=== PATIENT | male | born 1950 | race Caucasian/White ===

== ENCOUNTER 2019-01-18 11:28 | Inpatient (IN) | payer MEDICAID ==
[~2019-01-18] VITALS: Ht 170.2 cm; Wt 77.3 kg
[2019-01-18] MEDS ORDERED: LORAZEPAM 2 MG INJ IV STA (11:38)
[2019-01-18] MEDS ORDERED: SOD CHLORIDE 0.9% 1,000 ML IV STA (11:38)
[2019-01-18 12:03] VITALS: Ht 170.2 cm; Wt 77.3 kg
[2019-01-18] MEDS ORDERED: FURO20TA3 PO (12:28)
[2019-01-18] MEDS ORDERED: LACT10SO5 PO (12:28)
[2019-01-18] MEDS ORDERED: TRAM50TA PO (12:29)
[2019-01-18] MEDS ORDERED: THIA100T56 PO (12:29)
[2019-01-18] MEDS ORDERED: SODIUM CHLORIDE 0.9% 1L BAG IV* STA (12:30)
[2019-01-18] MEDS ORDERED: CEFEPIME 2GM/50 ML (PMX) 50 ML IVPB STA (12:30)
[2019-01-18] MEDS ORDERED: PROP20TA4 PO (12:30)
[2019-01-18] MEDS ORDERED: MULTI PO (12:30)
[2019-01-18] MEDS ORDERED: PANT40TA4 PO (12:30)
[2019-01-18] MEDS ORDERED: VANCOMYCIN 1 GM (PMX) 250 ML IVPB ONE (12:30)
[2019-01-18] MEDS ORDERED: FOLI-49 PO (12:31)
[2019-01-18] MEDS ORDERED: OMEP20CA16 PO (12:31)
--- NOTE | 2019-01-18 13:34 | ERD ---
ER Documentation Chief Complaint Chief Complaint ALOC X3DAY WAKE NON VERBAL RESPONSE NOTED, ABLE TO MAINTAIN AIRWAY HPI This is a 68-year-old male that presents to the emergency department changes in his mental status. According to family which are his 3 siblings they stated that the patient has a history of cirrhosis secondary to alcohol abuse. Roughly 2 weeks ago he was seen at [facility]. A large mass was found in the left lower liver. According to imaging they were informed that this appears to be a neoplastic process. They were scheduling for imaging. The biopsy appointment is yet to be obtained. However family indicates that the patient stated he wanted to be DO NOT RESUSCITATE with comfort measures only and DO NOT INTUBATE. They were currently awaiting for hospice. The patient has become more confused over the past 3 days. He refuses to eat. He mumbles incomprehensible sounds and is experiencing visual hallucinations. According to his son who is been taking care of him there is been no blunt or penetrating head chest or abdominal trauma. He had no fevers. He said decreased urinary output. He has not complained of any chest pain or shortness of breath. ROS All systems reviewed and are negative except as per history of present illness. Medications Home Meds Reported Medications Omeprazole* (Omeprazole*) 20 Mg Capsule.dr, 40 MG PO DAILY, #30 CAP 01/18/19 Folic Acid* (Folic Acid*) 1 Mg Tablet, 1 MG PO DAILY, TAB 01/18/19 Pantoprazole* (Pantoprazole*) 40 Mg Tablet.dr, 40 MG PO AC BREAKFAST, TAB 01/18/19 Multivitamins* (Theragran*) 1 Tab Tab, 1 TAB PO DAILY, TAB 01/18/19 Propranolol Hcl* (Propranolol Hcl*) 20 Mg Tablet, 20 MG PO BID, TAB 01/18/19 Tramadol Hcl* (Ultram*) 50 Mg Tablet, 50 MG PO Q12H PRN for PAIN, TAB 01/18/19 Thiamine* (Vitamin B-1*) 100 Mg Tablet, 100 MG PO DAILY, TAB 01/18/19 Furosemide* (Furosemide*) 20 Mg Tablet, 20 MG PO DAILY, #60 TAB 01/18/19 Lactulose* (Lactulose*) 10 Gm/15 Ml Solution, 15 ML PO BID, ML 01/18/19 Allergies Allergies: Coded Allergies: No Known Allergy (Unverified , 01/18/19) PMhx/Soc History of Surgery: No (UNK) Anesthesia Reaction: No Hx Neurological Disorder: No Hx Respiratory Disorders: No Hx Cardiac Disorders: Yes (CHF, HTN) Hx Psychiatric Problems: No Hx Miscellaneous Medical Probl: Yes (LIVER CIRRHOSIS, CA UNK ETIOLOGY, GERD) Hx Alcohol Use: No (UNK) Hx Substance Use: No (UNK) Hx Tobacco Use: No (UNK) Smoking Status: Unknown if ever smoked Physical Exam Vitals Vital Signs Date Temp Pulse Resp B/P (MAP) Pulse Ox O2 O2 Flow FiO2 Time Delivery Rate 01/18/19 Nasal 2 12:03 Cannula 01/18/19 98.0 73 26 157/75 98 12:03 (102) Physical Exam Constitutional:Well-developed. Disheveled. Agitated. HEENT:Normocephalic. Atraumatic.Pupils were equal round reactive to light. Very dry mucous membranes.No tonsillar exudates. Neck: No nuchal rigidity. No lymphadenopathy. No posterior cervical spine tenderness or step-offs. Respiratory: Not using accessory muscles of respiration.Lungs were clear to auscultation bilaterally. No rhonchi. No rales. No wheezing. Cardiovascular: Regular rate regular rhythm.No murmurs. No rubs were appreciated.S1, S2 normal. Distal pulses are palpable 2+ bilaterally. GI: Abdomen was soft. Nontender. Hepatomegaly. Non Distended. No pulsatile abdominal masses or bruits. No rebound. No guarding. Bowel sounds were present and normal. Muscle skeletal: Full range of motion of both the upper and lower extremities bilaterally.Normal muscle tone.No assymetrical calf tenderness or swelling. Skin: No petechia, no purpura. No lesions on the palms or the soles of the feet. No maculopapular rash. NEURO: Patient was alert with spontaneous eye movement. Patient did not follow verbal command. Patient was mumbling incomprehensible sounds . gait not observed as patient was too weak to ambulate. Patient withdrew to pain. Result Diagram: 01/18/19 1139 01/18/19 1139 Results 24 hrs Laboratory Tests Test 01/18/19 11:37 01/18/19 11:39 01/18/19 11:50 Blood Gas Specimen Source Blood arterial Arterial Blood Date Drawn 01/18/2019 11:42:12 AM Arterial Blood pH 7.455 (Temp corrected) Arterial Blood pCO2 42.5 mmhg (Temp correct) Arterial Blood pO2 103.9 mmHG (Temp corrected) Arterial Blood HCO3 29.2 mmol/L Arterial Blood Base Excess 4.8 mmol/L Arterial Blood 98.0 mmHG Oxygen Saturation Liam Test N/A Arterial Blood Gas LB Puncture Site Arterial 0.7 % Blood Carboxyhemoglobin Arterial Blood Methemoglobin 0.4 % Blood Gas A-a O2 45.6 mmHg Differential Oxyhemoglobin Percent 96.9 % Blood Gas Temperature 37.0 C Blood Gas Modality NASAL CANNULA FiO2 28.0 % Blood Gas Notified Whom Norbert Blood Gas Notified Time 01/18/2019 11:51:35 AM Bedside Glucose 104 mg/dL White Blood Count 12.9 10^3/ul Red Blood Count 4.20 10^6/ul Hemoglobin 12.1 g/dl Hematocrit 37.1 % Mean Corpuscular Volume 88.3 fl Mean Corpuscular Hemoglobin 28.8 pg Mean Corpuscular 32.6 g/dl Hemoglobin Concent Red Cell Distribution Width 14.2 % Platelet Count 377 10^3/UL Mean Platelet Volume 8.9 fl Immature Granulocytes % 0.500 % Neutrophils % 81.6 % Lymphocytes % 10.6 % Monocytes % 6.9 % Eosinophils % 0.2 % Basophils % 0.2 % Nucleated Red Blood Cells % 0.0 /100WBC Immature Granulocytes # 0.070 10^3/ul Neutrophils # 10.5 10^3/ul Lymphocytes # 1.4 10^3/ul Monocytes # 0.9 10^3/ul Eosinophils # 0.0 10^3/ul Basophils # 0.0 10^3/ul Nucleated Red Blood Cells # 0.0 10^3/ul Prothrombin Time 15.0 Sec Prothrombin Time Ratio 1.2 INR International 1.17 Normalized Ratio Activated 29.6 Sec Partial Thromboplast Time Sodium Level 141 mmol/L Potassium Level 3.9 mmol/L Chloride Level 99 mmol/L Carbon Dioxide Level 34 mmol/L Anion Gap 8 Blood Urea Nitrogen 29 mg/dl Creatinine 1.10 mg/dl Est Glomerular Filtrat > 60 mL/min Rate mL/min Glucose Level 109 mg/dl Calcium Level 16.5 mg/dl Total Bilirubin 2.2 mg/dl Direct Bilirubin 0.00 mg/dl Indirect Bilirubin 2.2 mg/dl Aspartate Amino 176 IU/L Transf (AST/SGOT) Alanine 46 IU/L Aminotransferase (ALT/SGPT) Alkaline Phosphatase 543 IU/L Ammonia < 9 umol/l Creatine Kinase 888 IU/L Creatine Kinase Index 0.8 Creatinine Kinase MB (Mass) 6.83 ng/ml Troponin I < 0.012 ng/ml Total Protein 9.0 g/dl Albumin 3.8 g/dl Globulin 5.20 g/dl Albumin/Globulin Ratio 0.73 Free Thyroxine Index 5.22 ug/ml Thyroxine (T4) 10.1 ug/dl Triiodothyronine (T3) Uptake 51.7 % Salicylates Level < 1.0 mg/dl Acetaminophen Level < 10.0 ug/ml Ethyl Alcohol Level < 10.0 mg/dl POC Venous Lactate 2.2 mmol/L Current Medications Medications Dose Sig/Delta Start Time Status Last (Trade) Ordered Route PRN Stop Time Admin Dose Reason Admin Lorazepam 1 mg ONCE STAT 01/18/19 DC 01/18/19 (Ativan) IV 11:38 01/18/19 11:58 11:41 Sodium 1,000 ml @ Q1H STAT 01/18/19 DC 01/18/19 Chloride 1,000 mls/hr IV 11:38 01/18/19 11:59 12:37 Sodium 1,320 ml BOLUS OVER 2 01/18/19 DC 01/18/19 Chloride HOURS STAT 12:30 01/18/19 12:58 (NS) IV* 12:33 Cefepime HCl 50 ml @ ONCE STAT 01/18/19 DC 01/18/19 100 mls/hr IVPB 12:30 01/18/19 12:58 12:59 Vancomycin 250 ml @ ONCE ONCE 01/18/19 HCl 125 mls/hr IVPB 12:30 01/18/19 14:29 Procedures/MDM The patient presented to the emergency department with an acute and persistent change in their mental status. The differential diagnosis is diverse however reversible causes such as hypoglycemia, opiate overdose, thiamine deficiency were immediately considered. The patient was placed on a desk monitor, continuous pulse oximetry and IV access was established. The patients airway was secure however hypoxic events such as anemia, shock, or severe pulmonary disease were all considered as etiologies in this patients presentation. Circulation assessed with good cap refill and did not require fluids or pressure support. Finger stick for rapid glucose determined to be normal. 12 Lead EKG tracing ordered and reviewed by myself showed: Normal sinus rhythm of 73 bpm and no arrhythmia. Occasional PVCs NM interval normal. QRS duration normal. No ST segment elevation No ST segment depression. No changes consistent with acute ischemia. I obtained a CT scan of the patient's brain which showed no intracerebral hemorrhage mass-effect Shift. Chest radiograph on reviewed by myself as well as the radiologist indicate the following: No acute cardiopulmonary disease. Mild cardiomegaly and atherosclerotic aortic calcification The patient did meet Sirs criteria. Lactic acid was elevated. This could be result of sepsis or the underlying liver cirrhosis. Patient's infectious symptoms have not stabilized and the patient is at risk of rapid decompensation. The patient will be admitted for careful hydration, antibiotic therapy, and infectious source control. The patient's ammonia level was within normal limits Severe Sepsis Assessment: Infectious Source: Unknown End organ damage indicated by: Lactate > 2.0 mmol/L Severe Sepsis Managment: Blood Cultures X 2 before broad spectrum antibiotics initiated within 3 hours of recognition. 30 ml/kg NS bolus Completed Initial Lactate: 2.2 Repeat Lactate pending I considered further perfusion assessment with CVP measurement, SCVO2, bedside ultrasound volume assessment, passive leg raise, trial of further fluid bolus. And preceded with IV fluids The patient's calcium was severely elevated at 16.5. He will be started on bisphosphonate is a corrected calcium was still significantly elevated. IV pamidronate will be given. I had a lengthy discussion with the patient's sisters and brother. A pulsed form has not yet been signed but they did state that the patient's wishes were D O NOT RESUSCITATE with comfort measures only. Therefore this was honored and the patient at this time had an order placed in the chart by myself for no shock no pressors no CPR no intubation. The patient will be admitted to the hospitalist in serious condition. Given the change in his CODE STATUS I did feel that the patient was stable to go to the medical surgical floor. Critical Care: Time: 65 minutes Treatments/Evaluations: Close monitoring and treatment of unstable vital signs, cardiorespiratory, and neurologic status, while maintaining tight balance of fluid, respiratory, and cardiac interventions. Time does not include performing any of the above billable procedures. Departure Diagnosis: Primary Impression: Altered mental status Altered mental status type: unspecified Qualified Codes: R41.82 - Altered mental status, unspecified Additional Impressions: Hypercalcemia Sepsis Sepsis type: sepsis due to unspecified organism Qualified Codes: A41.9 - Sepsis, unspecified organism Liver tumor or cancer Condition: Serious LINDSAY MORE MD Jan 18, 2019 13:34
[2019-01-18] MEDS ORDERED: PAMIDRONATE 90 MG in SOD CHLORIDE 0.9% 500 ML IV ONE (14:00)
[2019-01-18] MEDS ORDERED: PAMIDRONATE 30 MG in SOD CHLORIDE 0.9% 500 ML IV ONE (14:00)
[2019-01-18] MEDS ORDERED: ACETAMINOPHEN 325 MG TAB PO PRN (15:00)
[2019-01-18] MEDS ORDERED: ONDANSETRON 4 MG INJ IV PRN ×2 (15:00→17:30)
--- NOTE | 2019-01-18 17:17 | HP ---
Date/Time of Note Date/Time of Note DATE: 01/18/19 TIME: 16:51 Assessment/Plan VTE Prophylaxis SCD applied (from Nsg): Yes Pharmacological prophylaxis: LMWH Lines/Catheters IV Catheter Type (from Nrsg): Saline Lock Assessment/Plan Hospital Course Assessment and plan 1. ALOC. Likely secondary to his alcoholic liver cirrhosis. Ammonia level not elevated. CT imaging of his head showed no evidence of acute renal pathology. We will continue reorientation. 2. Liver mass suspect malignant. Was recently diagnosed 2 weeks ago at [facility] that patient had a liver mass. Biopsy of this was pending. Discussed with patient's family Michelle, who said that at this time they only want comfort measures for the patient and would not like any further invasive diagnostic procedure. Family at this time also requested for no further specialty physician consultation. We will get manager of case involved. There was mention of possible hospice consultation as well. We will get palliative care physician to follow. 3. Hypercalcemia. continue fluid resuscitation, calcitonin 3. History of alcoholic liver cirrhosis. Monitor LFT. Follow-up on hepatitis panel. 4. Elevated creatinine kinase. Start IV fluids. Monitor trend. 5. Leukocytosis. Follow-up on blood cultures. Was given Vanco and cefepime in the ER. 6. History of homelessness. clinical manager home care to follow. Discussed POC with Dr. Lopez Result Diagram: 01/18/19 1139 01/18/19 1139 Results 24hrs Laboratory Tests Test 01/18/19 11:37 01/18/19 11:39 01/18/19 11:50 Blood Gas Specimen Source Blood arterial Arterial Blood Date Drawn 01/18/2019 11:42:12 AM Arterial Blood pH 7.455 H (Temp corrected) Arterial Blood pCO2 42.5 (Temp correct) Arterial Blood pO2 103.9 H (Temp corrected) Arterial Blood HCO3 29.2 H Arterial Blood Base Excess 4.8 H Arterial Blood 98.0 Oxygen Saturation Liam Test N/A Arterial Blood Gas LB Puncture Site Arterial 0.7 Blood Carboxyhemoglobin Arterial Blood Methemoglobin 0.4 Blood Gas A-a O2 Differential 45.6 H Oxyhemoglobin Percent 96.9 Blood Gas Temperature 37.0 Blood Gas Modality NASAL CANNULA FiO2 28.0 Blood Gas Notified Whom M.D. Blood Gas Notified Time 01/18/2019 11:51:35 AM Bedside Glucose 104 White Blood Count 12.9 H Red Blood Count 4.20 L Hemoglobin 12.1 L Hematocrit 37.1 L Mean Corpuscular Volume 88.3 Mean Corpuscular Hemoglobin 28.8 L Mean Corpuscular 32.6 Hemoglobin Concent Red Cell Distribution Width 14.2 Platelet Count 377 Mean Platelet Volume 8.9 Immature Granulocytes % 0.500 H Neutrophils % 81.6 H Lymphocytes % 10.6 L Monocytes % 6.9 Eosinophils % 0.2 Basophils % 0.2 Nucleated Red Blood Cells % 0.0 Immature Granulocytes # 0.070 H Neutrophils # 10.5 H Lymphocytes # 1.4 Monocytes # 0.9 Eosinophils # 0.0 Basophils # 0.0 Nucleated Red Blood Cells # 0.0 Prothrombin Time 15.0 H Prothrombin Time Ratio 1.2 INR International 1.17 Normalized Ratio Activated Partial Thromboplast 29.6 Time Sodium Level 141 Potassium Level 3.9 Chloride Level 99 Carbon Dioxide Level 34 H Anion Gap 8 Blood Urea Nitrogen 29 H Creatinine 1.10 Est Glomerular Filtrat > 60 Rate mL/min Glucose Level 109 Calcium Level 16.5 *H Total Bilirubin 2.2 H Direct Bilirubin 0.00 Indirect Bilirubin 2.2 H Aspartate Amino 176 H Transf (AST/SGOT) Alanine 46 Aminotransferase (ALT/SGPT) Alkaline Phosphatase 543 H Ammonia < 9 L Creatine Kinase 888 H Creatine Kinase Index 0.8 Creatinine Kinase MB (Mass) 6.83 H Troponin I < 0.012 Total Protein 9.0 H Albumin 3.8 Globulin 5.20 H Albumin/Globulin Ratio 0.73 Free Thyroxine Index 5.22 H Thyroxine (T4) 10.1 Triiodothyronine (T3) Uptake 51.7 H Salicylates Level < 1.0 L Acetaminophen Level < 10.0 L Ethyl Alcohol Level < 10.0 H POC Venous Lactate 2.2 *H HPI/ROS Admit Date/Time Admit Date/Time Hx of Present Illness This is a 68-year-old male disoriented who was unable to give an account of his history. Medical history obtained from records and staff and patient's daughter Michelle. Per report patient has history of alcoholic liver cirrhosis, alcohol abuse for over 25 years. He was reported to be homeless as well.. It was reported that roughly 2 weeks prior to admission he was seen at [facility] and was found to have a large mass on the left lower liver. It was suspect that this was a neoplastic process. There was a plan to schedule him for further imaging as well as biopsy on February 28, 2019. Patient was discharged from [facility] roughly 2 weeks ago and was living with his son however it became difficult to care for the patient due to his multiple comorbidities and altered state. He was brought to the hospital as patient became more altered. Family is requesting to make this patient DNR and as such he is DNR/DNI at present. Currently patient remains altered with no purposeful response. No evidence of elevation in alcohol level. He was noted with elevated LFT and creatinine kinase. We will evaluate him for the aformentiond issues. ROS Unable to fully obtain due to patient's mentation PMH/Family/Social Past Medical History Medical/surgical history 1. Alcoholic liver cirrhosis 2. Recent diagnosis of liver mass 3. Homelessness 4. Reported history of drug and alcohol abuse Medications Current Medications Pamidronate Disodium 90 mg/ Sodium Chloride 500 ml @ 83.333 mls/ hr Q6H ONCE IV Last administered on 01/18/19at 16:33; Admin Dose 83.333 MLS/HR; Start 01/18/19 at 14:00; Stop 01/18/19 at 19:59 Ondansetron HCl (Zofran Inj) 4 mg BRIDGE ORDER PRN IV NAUSEA/VOMITING; Start 01/18/19 at 15:00; Stop 01/19/19 at 14:59 Acetaminophen (Tylenol Tab) 650 mg ER BRIDGE PRN PO .MILD PAIN 1-3 OR TEMP; Start 01/18/19 at 15:00; Stop 01/19/19 at 14:59 Folic Acid (Folic Acid) 1 mg DAILY PO ; Start 01/19/19 at 09:00 Furosemide (Lasix) 20 mg DAILY PO ; Start 01/19/19 at 09:00 Lactulose (Enulose) 10 gm BID PO ; Start 01/18/19 at 21:00 Multivitamins Therapeutic (Theragran) 1 tab DAILY PO ; Start 01/19/19 at 09:00 Pantoprazole (Protonix Tab) 40 mg AC BREAKFAST PO ; Start 01/19/19 at 07:00 Propranolol HCl (Inderal) 20 mg BID PO ; Start 01/18/19 at 21:00 Thiamine HCl (Vitamin B1) 100 mg DAILY PO ; Start 01/19/19 at 09:00 Coded Allergies: No Known Allergy (Unverified , 6/6/19) Social History Alcohol Use: heavy Smoking Status: Unknown if ever smoked Drug Use: other (unknown) Exam/Review of Systems Vital Signs Vitals Vital Signs Date Temp Pulse Resp B/P (MAP) Pulse Ox O2 O2 Flow FiO2 Time Delivery Rate 01/18/19 75 18 140/73 100 Nasal 2.0 16:39 (95) Cannula 01/18/19 98.0 14:14 Exam Constitutional: No alert, No oriented Eyes: icteric Neck: supple Respiratory: diminished breath sounds Gastrointestinal: soft, tender Neurological: No nl mental status, No nl speech REGNILAY ROSADO NP Jan 18, 2019 17:02
[2019-01-18] MEDS ORDERED: NACL 0.9% 3 ML SYG IV SCH (17:30)
[2019-01-18] MEDS ORDERED: PANTOPRAZOLE 40 MG INJ IV SCH (18:00)
[2019-01-18 19:05] VITALS: BP 139/73; PULSE 80; RESP 18
[2019-01-18 20:22] VITALS: BP 130/78; PULSE 73; RESP 18
[2019-01-18] MEDS: LACTULOSE 30ML CUP PO SCH ×2 (21:07→22:18)
[2019-01-18] MEDS: SOD CHLORIDE 0.9% 1,000 ML IV SCH (21:07)
[2019-01-18] MEDS: PROPRANOLOL 20 MG TAB PO SCH (22:14)
[2019-01-18] MEDS ORDERED: ZOLEDRONIC ACID 4 MG in SOD CHLORIDE 0.9% 100 ML IVPB ONE (22:30)
[2019-01-19] MEDS: SOD CHLORIDE 0.9% 1,000 ML IV SCH ×4 (01:30→16:21)
[2019-01-19 02:29] VITALS: BP 140/71; PULSE 80
[2019-01-19] MEDS: PANTOPRAZOLE (EC) 40 MG TAB PO SCH (06:14)
[2019-01-19] MEDS: ACETAMINOPHEN 650 MG SUPP PR PRN ×2 (06:22→13:47)
[2019-01-19 07:56] VITALS: BP 181/107; PULSE 84; RESP 18
[2019-01-19 08:49] VITALS: BP 131/64; PULSE 90
[2019-01-19] MEDS: LACTULOSE 30ML CUP PO SCH ×2 (08:52→21:00)
[2019-01-19] MEDS: FOLIC ACID 1 MG TAB PO SCH (08:55)
[2019-01-19] MEDS: MULTIVITAMINS THERAPEUTIC TAB PO SCH (08:55)
[2019-01-19] MEDS: PROPRANOLOL 20 MG TAB PO SCH ×2 (08:55→21:00)
[2019-01-19] MEDS: THIAMINE 100 MG TAB PO SCH (08:55)
[2019-01-19] MEDS: FUROSEMIDE 20 MG TAB PO SCH (08:55)
[2019-01-19] MEDS: ENOXAPARIN 40 MG/0.4 ML SYG SC SCH (09:51)
--- NOTE | 2019-01-19 10:46 | CONS ---
DATE OF ADMISSION: 01/18/2019 DATE OF CONSULTATION: 01/19/2019 TYPE OF CONSULTATION: Medical oncology. REQUESTING PHYSICIAN: Nilay Cruz NP REASON FOR CONSULTATION: Hepatic mass and hypercalcemia. Dear Sarah Anthony: Thank you very much for asking me to see this very interesting and pleasant gentleman in oncologic co nsultation. Unfortunately, Mr. Lyn is confused, unable to give any type of history. The patient is a 68-year-old man who apparently has been homeless. His exact social status is unknow n. The patient was brought to the Emergency Room at [facility] because of changes in p atient's mental status. The patient apparently had recently been hospitalized at [facility]. There the patient was found t o have a mass in the liver. A biopsy was not performed, but was apparently to be scheduled. The patient had previously stated that he did not wish to be resuscitated and did not wish intubation . The patient, however, was brought to the Emergency Room as he became more confused in the past severa l days. Oral intake was decreasing. It is unclear the patient's other recent history. It is unclear why the patient has been losing weig ht. Whether he has had shortness of breath or cough. Whether there have been fevers, chills, night sweats, etc. When the patient presented to the Emergency Room, his white count was 12,900 with an absolute neutrop hil count of 10,500, hemoglobin 12.1, hematocrit 37.1, MCV 88.3, MCH 38.8 and MCHC 32.6, RDW 14.2 and platelet count 377,000. On admission, the patient had sodium 141, potassium 3.9, BUN 29, creatinine 1.10. Total bilirubin was 2.2 with a direct bilirubin of 0, AST 174, ALT 46, alkaline phosphatase w as 543. Ammonia level has been checked and this is less than 9. Total protein was 9 and albumin 3.8 with a globulin being 5.2. The calcium was noted to be 16.5. The patient on admission had a protime of 15 seconds and with an INR of 1.17, PTT was 29.6 seconds. Other imaging on admission included a chest x-ray which showed no acute cardiopulmonary disease. The re was some mild cardiomegaly. A CT scan of the brain was performed as well. This was without contr ast. There was no evidence of any intracranial pathology. There is little other known regarding the patient's past history. Apparently there is a history of c irrhosis due to alcohol consumption. As noted, the patient has been homeless. On admission, he was stated to have been takin. Omeprazole 20 mg daily. 2. Folic acid 1 mg daily. 3. Multiple vitamins. 4. Propranolol 20 mg twice a day. 5. Tramadol 50 mg q.12h. p.r.n. for pain. 6. Thiamine 100 mg daily. 7. Furosemide 20 mg daily. 8. Lactulose. ALLERGIES: He has no known allergies. SOCIAL HISTORY: It is not known whether the patient had any other surgeries, etc. PHYSICAL EXAMINATION: GENERAL: At this time reveals a well-developed but disheveled and chronically ill-appearing male who is awake, but does not respond to questions and seems confused. VITAL SIGNS: Temperature 98.9 axillary, pulse 90 per minute and regular, respirations 18, blood pres sure 131/64, pulse oximetry 98% on nasal cannula at 2 liters per minute. SKIN: Poor turgor. There is no ecchymosis, no petechiae or rashes. HEENT: Normocephalic. There is no evidence of trauma. Pupils equal, round, react to light and acco mmodation. Sclerae nonicteric. Oral mucosa is dry, but without lesions. The tongue is well papilla esperanza. There are no telangiectasias. NECK: Supple. No jugular venous distention or thyroid enlargement. CHEST: Clear to auscultation and percussion. No rhonchi, wheezes, rales or rubs. There is no pain on percussion of the spine, sternum, clavicles or ribs. BREASTS: No gynecomastia. HEART: Regular sinus rhythm, no S3, S4 or murmurs. NODES: No palpable lymphadenopathy in any lymph node bearing area. ABDOMEN: Flat and soft. There is no organomegaly, masses or tenderness. EXTREMITIES: Good range of motion, no clubbing, edema or cyanosis. No palpable cords or Homans sign . NEUROLOGIC: Reveals no focal neurologic abnormalities. The patient does not have any obvious ulcer. The patient does not have asterixis, but does have generalized twitching. DISCUSSION: This patient is said to have had hepatic mass but this has not been biopsied. He also h as a history apparently of cirrhosis due to alcohol consumption. Liver functions are abnormal on admission. Today, the patient's total bilirubin is 1.2 with a direct of 0. AST is 120, ALT is 49. Alkaline phosphatase is 386. The patient's globulin has improved with hydration. The total protein today is 6.5 with a globulin o f 3.7. The patient was given 4 mg of zoledronic acid yesterday. Today, calcium is 14.3. Parathyroid hormone assay reveals a decrease parathyroid level of 5.4. 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 Patients with hepatocellular carcinoma or even benign hepatic adenomas may develop hypercalcemia. Ot her malignancies such as a renal carcinoma can be associated with hypercalcemia as well. As noted, the patient did receive zoledronic acid last night. We will expect further decrease in bela cium in the next 24 hours. It is not clear whether the patient's change in mental status is actually related to hypercalcemia. As noted his ammonia level is normal and there is no intracranial abnorma lity noted. An alpha fetoprotein had been requested because of the possibility of a primary hepatocellular carcin gloria. This, however, is only 2.2. Hypercalcemia may also be associated with immunoproliferative disorder such as myeloma. As noted, th e patient does have a mild increase in globulin. I have requested a serum protein electrophoresis an d immunofixation. These are pending. The quantitative immunoglobulins, however, show a diffuse incr ease in IgG, IgA and IgM. This suggests a polyclonal gammopathy more consistent with an inflammatory process than with a primary hepatocellular carcinoma rather than an immunoproliferative disorder suc h as myeloma or lymphoproliferative disorder such as lymphoma. At this time, would suggest obtaining an ultrasound of the abdomen for further description of any int raabdominal processes. This may also reveal the possibility of a renal carcinoma which as noted can be associated with hypercalcemia. Apparently, the family is reluctant to have any more invasive procedures performed and would like a h ospice evaluation. Certainly if any active investigations and/or therapy are contemplated, the patie nt will require some adjustment is in his living situation. It should be noted also that the patient's hepatitis serologies are all negative. Dictated By: JUANY PEARCE MD SR/NTS Conf#: [id number] DID#: [id number] CC: NILAY CRUZ NP; JAIR KUNZ MD;*[facility]*
[2019-01-19] MEDS ORDERED: CALCITONIN SALMON INJ 200 UNITS/ML SYG SC ONE (11:00)
[2019-01-19 13:56] VITALS: BP 129/94; PULSE 109; RESP 19
[2019-01-19] MEDS ORDERED: VANCOMYCIN IV PER PHARMACY XX SCH (14:30)
--- NOTE | 2019-01-19 14:30 | PN ---
Date/Time of Note Date/Time of Note DATE: 01/19/19 TIME: 14:17 Assessment/Plan VTE Prophylaxis Risk score (from Nsg)>0 risk: 4 SCD applied (from Nsg): Yes Pharmacological prophylaxis: LMWH Lines/Catheters IV Catheter Type (from Nrs): Peripheral IV Urinary Cath still in place: No Assessment/Plan Hospital Course Assessment and plan 1. ALOC. Likely secondary to his alcoholic liver cirrhosis. - CT imaging of his head showed no evidence of acute renal pathology. - continue reorientation. 2. Liver mass suspect malignant. - Was recently diagnosed 2 weeks ago at [facility] that patient had a liver mass. Plan for Biopsy of this was pending. Discussed with patient's family Michelle, who said that at this time they only want comfort measures for the patient and would not like any further invasive diagnostic procedure. - training program manager following. - palliative care physician to follow 3. Hypercalcemia. - continue fluid resuscitation, calcitonin - f/u level 3. History of alcoholic liver cirrhosis. - Monitor LFT. 4. Elevated creatinine kinase. - continue IVF 5. Leukocytosis. - f/u cultures - suspect sepsis? - continue abx 6. History of homelessness. 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 f/u case management for possible hospice. [facility] Discussed POC with Dr. Lopez Result Diagram: 01/19/19 0440 01/19/19 0440 Results 24hrs Laboratory Tests Test 01/18/19 17:37 01/18/19 23:22 01/18/19 23:23 01/19/19 03:00 Hepatitis B Surface NEGATIVE Antigen Hepatitis B Core NEGATIVE Total Antibody Hepatitis C Antibody NEGATIVE Parathyroid Hormone 5.4 L Immunoglobulin A 652 H Immunoglobulin G 1607 H Immunoglobulin M 240 H Alpha Fetoprotein 2.20 Urine Color YELLOW Urine Clarity CLEAR Urine pH 6.0 Urine Specific [place] 1.009 Urine Ketones TRACE A Urine Nitrite NEGATIVE Urine Bilirubin NEGATIVE Urine Urobilinogen NEGATIVE Urine Leukocyte Esterase NEGATIVE Urine Hemoglobin NEGATIVE Urine Glucose NEGATIVE Urine Total Protein NEGATIVE Urine Opiates Screen Negative Urine Barbiturates Negative Urine Amphetamines Negative Screen Urine Benzodiazepines Negative Screen Urine Cocaine Screen Negative Urine Cannabinoids Negative Test 01/19/19 04:40 White Blood Count 9.4 # Red Blood Count 3.56 L Hemoglobin 10.2 L Hematocrit 32.4 L Mean Corpuscular Volume 91.0 Mean Corpuscular 28.7 L Hemoglobin Mean Corpuscular 31.5 L Hemoglobin Concent Red Cell Distribution 14.6 H Width Platelet Count 274 # Mean Platelet Volume 8.5 Immature Granulocytes % 0.500 H Neutrophils % 82.8 H Lymphocytes % 9.1 L Monocytes % 6.8 Eosinophils % 0.6 Basophils % 0.2 Nucleated Red Blood 0.0 Cells % Immature Granulocytes # 0.050 H Neutrophils # 7.8 H Lymphocytes # 0.9 Monocytes # 0.6 Eosinophils # 0.1 Basophils # 0.0 Nucleated Red Blood 0.0 Cells # Sodium Level 144 Potassium Level 3.7 Chloride Level 108 Carbon Dioxide Level 30 Anion Gap 6 Blood Urea Nitrogen 24 H Creatinine 1.05 Est Glomerular Filtrat > 60 Rate mL/min Glucose Level 63 #L Hemoglobin A1c 5.0 Calcium Level 14.3 #*H Phosphorus Level 3.3 Magnesium Level 1.9 Total Bilirubin 1.2 Direct Bilirubin 0.00 Indirect Bilirubin 1.2 H Aspartate Amino 120 H Transf (AST/SGOT) Alanine 49 Aminotransferase (ALT/SG PT) Alkaline Phosphatase 386 H Total Protein 6.5 # Albumin 2.8 #L Globulin 3.70 H Albumin/Globulin Ratio 0.75 Triglycerides Level 85 Cholesterol Level 129 LDL Cholesterol, 90 Calculated HDL Cholesterol 22 L Cholesterol/HDL Ratio 5.8 Thyroid Stimulating 1.370 Hormone (TSH) Free Thyroxine Index 3.90 H Thyroxine (T4) 7.3 Triiodothyronine (T3) 53.4 H Uptake Subjective 24 Hr Interval Summary Free Text/Dictation still confused. no obvious distress. appears restless Exam/Review of Systems Exam Vitals Vital Signs Date Temp Pulse Resp B/P (MAP) Pulse Ox O2 O2 Flow FiO2 Time Delivery Rate 01/19/19 101.6 109 19 129/94 97 Nasal 13:56 (106) Cannula 01/19/19 2.0 08:00 Intake and Output 01/18/19 01/18/19 01/19/19 1515:00 23:00 07:00 IntakeIntake Total 2370 ml 105 ml 1500 ml BalanceBalance 2370 ml 105 ml 1500 ml Exam Constitutional: No alert, No oriented Eyes: icteric Neck: supple Respiratory: diminished breath sounds Gastrointestinal: soft, tender Neurological: No nl mental status, No nl speech Results Results 24hrs Laboratory Tests Test 01/18/19 17:37 01/18/19 23:22 01/18/19 23:23 01/19/19 03:00 Hepatitis B Surface NEGATIVE Antigen Hepatitis B Core NEGATIVE Total Antibody Hepatitis C Antibody NEGATIVE Parathyroid Hormone 5.4 L Immunoglobulin A 652 H Immunoglobulin G 1607 H Immunoglobulin M 240 H Alpha Fetoprotein 2.20 Urine Color YELLOW Urine Clarity CLEAR Urine pH 6.0 Urine Specific [place] 1.009 Urine Ketones TRACE A Urine Nitrite NEGATIVE Urine Bilirubin NEGATIVE Urine Urobilinogen NEGATIVE Urine Leukocyte Esterase NEGATIVE Urine Hemoglobin NEGATIVE Urine Glucose NEGATIVE Urine Total Protein NEGATIVE Urine Opiates Screen Negative Urine Barbiturates Negative Urine Amphetamines Negative Screen Urine Benzodiazepines Negative Screen Urine Cocaine Screen Negative Urine Cannabinoids Negative Test 01/19/19 04:40 White Blood Count 9.4 # Red Blood Count 3.56 L Hemoglobin 10.2 L Hematocrit 32.4 L Mean Corpuscular Volume 91.0 Mean Corpuscular 28.7 L Hemoglobin Mean Corpuscular 31.5 L Hemoglobin Concent Red Cell Distribution 14.6 H Width Platelet Count 274 # Mean Platelet Volume 8.5 Immature Granulocytes % 0.500 H Neutrophils % 82.8 H Lymphocytes % 9.1 L Monocytes % 6.8 Eosinophils % 0.6 Basophils % 0.2 Nucleated Red Blood 0.0 Cells % Immature Granulocytes # 0.050 H Neutrophils # 7.8 H Lymphocytes # 0.9 Monocytes # 0.6 Eosinophils # 0.1 Basophils # 0.0 Nucleated Red Blood 0.0 Cells # Sodium Level 144 Potassium Level 3.7 Chloride Level 108 Carbon Dioxide Level 30 Anion Gap 6 Blood Urea Nitrogen 24 H Creatinine 1.05 Est Glomerular Filtrat > 60 Rate mL/min Glucose Level 63 #L Hemoglobin A1c 5.0 Calcium Level 14.3 #*H Phosphorus Level 3.3 Magnesium Level 1.9 Total Bilirubin 1.2 Direct Bilirubin 0.00 Indirect Bilirubin 1.2 H Aspartate Amino 120 H Transf (AST/SGOT) Alanine 49 Aminotransferase (ALT/SG PT) Alkaline Phosphatase 386 H Total Protein 6.5 # Albumin 2.8 #L Globulin 3.70 H Albumin/Globulin Ratio 0.75 Triglycerides Level 85 Cholesterol Level 129 LDL Cholesterol, 90 Calculated HDL Cholesterol 22 L Cholesterol/HDL Ratio 5.8 Thyroid Stimulating 1.370 Hormone (TSH) Free Thyroxine Index 3.90 H Thyroxine (T4) 7.3 Triiodothyronine (T3) 53.4 H Uptake Medications Medication Current Medications Folic Acid (Folic Acid) 1 mg DAILY PO ; Start 01/19/19 at 09:00 Furosemide (Lasix) 20 mg DAILY PO ; Start 01/19/19 at 09:00 Lactulose (Enulose) 10 gm BID PO ; Start 01/18/19 at 21:00 Multivitamins Therapeutic (Theragran) 1 tab DAILY PO ; Start 01/19/19 at 09:00 Pantoprazole (Protonix Tab) 40 mg AC BREAKFAST PO ; Start 01/19/19 at 07:00 Propranolol HCl (Inderal) 20 mg BID PO ; Start 01/18/19 at 21:00 Thiamine HCl (Vitamin B1) 100 mg DAILY PO ; Start 01/19/19 at 09:00 IV Flush (NS 3 ml) 3 ml PER PROTOCOL IV ; Start 01/18/19 at 17:30 Ondansetron HCl (Zofran Inj) 4 mg Q6H PRN IV NAUSEA/VOMITING; Start 01/18/19 at 17:30 Acetaminophen (Tylenol Supp) 650 mg Q6H PRN [place] .PAIN 1-3 OR TEMP Last administered on 01/19/19at 13:47; Admin Dose 650 MG; Start 01/18/19 at 17:30 Enoxaparin Sodium (Lovenox) 40 mg DAILY SC Last administered on 01/19/19at 09:51; Admin Dose 40 MG; Start 01/19/19 at 09:00 Sodium Chloride 1,000 ml @ 125 mls/hr Q8H IV Last administered on 01/19/19at 05:58; Admin Dose 125 MLS/HR; Start 01/18/19 at 17:30 Lorazepam (Ativan) 1 mg Q6H PRN IV AGITATION/ANXIETY; Start 01/19/19 at 14:30 NILAY TOMLINSON NP Jan 19, 2019 14:27
[2019-01-19] MEDS: LORAZEPAM 2 MG INJ IV PRN (14:44)
[2019-01-19] MEDS: CEFEPIME 2GM/50 ML (PMX) 50 ML IVPB SCH ×2 (16:20→21:44)
[2019-01-19] MEDS ORDERED: VANCOMYCIN HCL 1.5 GM in SOD CHLORIDE 0.9% 250 ML IVPB ONE (17:00)
--- NOTE | 2019-01-19 17:13 | CONS ---
Assessment/Plan Assessment/Plan Assessment/Plan (Daily) Assessment: Alcoholic liver cirrhosis Liver mass Altered mental status Hepatic encephalopathy Anemia Mild hyperbilirubinemia Elevated AST -patient quit alcohol 3 months ago Plan: Recommend EGD/colonoscopy for esophageal varices surveillance and rule out colon cancer Lactulose and rifaximin -once able to take p.o.'s Family is deciding on comfort care Monitor LFTs She is seen in collaboration with Dr. Forde Consultation Date/Type/Reason Admit Date/Time Date of Consultation: Jan 19, 2019 Reason for Consultation Liver mass Date/Time of Note DATE: 01/19/19 TIME: 17:02 Hx of Present Illness This is a 68-year-old homeless male with a history of alcoholic liver cirrhosis who was recently diagnosed with liver mass . GI was consulted for possible colonoscopy to rule out colon cancer. Patient appears confused. Patient has no history of EGD or colonoscopy. I spoke to daughter Lyubov about EGD/colonoscopy to rule out esophageal varices and evaluate the patient for colon cancer. Risks and benefits of the procedure have been discussed with the daughter. She is agreeable to the procedure. Tentatively planned procedure for 1 day. However there was a previous plan for hospice care. We will follow-up the results of family meeting. Currently there is no evidence of nausea, vomiting, hematemesis, hematochezia or fever. Gastrointestinal: no complaints (See HPI) Past Medical History Alcoholic liver cirrhosis, liver mass Home Meds Reported Medications Omeprazole* (Omeprazole*) 20 Mg Capsule.dr, 40 MG PO DAILY, #30 CAP 01/18/19 Folic Acid* (Folic Acid*) 1 Mg Tablet, 1 MG PO DAILY, TAB 01/18/19 Pantoprazole* (Pantoprazole*) 40 Mg Tablet.dr, 40 MG PO AC BREAKFAST, TAB 01/18/19 Multivitamins* (Theragran*) 1 Tab Tab, 1 TAB PO DAILY, TAB 01/18/19 Propranolol Hcl* (Propranolol Hcl*) 20 Mg Tablet, 20 MG PO BID, TAB 01/18/19 Tramadol Hcl* (Ultram*) 50 Mg Tablet, 50 MG PO Q12H PRN for PAIN, TAB 01/18/19 Thiamine* (Vitamin B-1*) 100 Mg Tablet, 100 MG PO DAILY, TAB 01/18/19 Furosemide* (Furosemide*) 20 Mg Tablet, 20 MG PO DAILY, #60 TAB 01/18/19 Lactulose* (Lactulose*) 10 Gm/15 Ml Solution, 15 ML PO BID, ML 01/18/19 Medications Current Medications Folic Acid (Folic Acid) 1 mg DAILY PO ; Start 01/19/19 at 09:00 Furosemide (Lasix) 20 mg DAILY PO ; Start 01/19/19 at 09:00 Lactulose (Enulose) 10 gm BID PO ; Start 01/18/19 at 21:00 Multivitamins Therapeutic (Theragran) 1 tab DAILY PO ; Start 01/19/19 at 09:00 Pantoprazole (Protonix Tab) 40 mg AC BREAKFAST PO ; Start 01/19/19 at 07:00 Propranolol HCl (Inderal) 20 mg BID PO ; Start 01/18/19 at 21:00 Thiamine HCl (Vitamin B1) 100 mg DAILY PO ; Start 01/19/19 at 09:00 IV Flush (NS 3 ml) 3 ml PER PROTOCOL IV ; Start 01/18/19 at 17:30 Ondansetron HCl (Zofran Inj) 4 mg Q6H PRN IV NAUSEA/VOMITING; Start 01/18/19 at 17:30 Acetaminophen (Tylenol Supp) [address] .PAIN 1-3 OR TEMP Last administered on 01/19/19at 13:47; Admin Dose 650 MG; Start 01/18/19 at 17:30 Enoxaparin Sodium (Lovenox) 40 mg DAILY SC Last administered on 01/19/19at 09:51; Admin Dose 40 MG; Start 01/19/19 at 09:00 Sodium Chloride 1,000 ml @ 125 mls/hr Q8H IV Last administered on 01/19/19at 16:21; Admin Dose 125 MLS/HR; Start 01/18/19 at 17:30 Lorazepam (Ativan) 1 mg Q6H PRN IV AGITATION/ANXIETY Last administered on 01/19/19at 14:44; Admin Dose 1 MG; Start 01/19/19 at 14:30 Cefepime HCl 50 ml @ 100 mls/hr Q8 IVPB Last administered on 01/19/19at 16:20; Admin Dose 100 MLS/HR; Start 01/19/19 at 16:00 Vancomycin HCl (Vanco Iv Per Pharmacy) 1 ea Per Rx Protocol XX ; Start 01/19/19 at 14:30 Vancomycin HCl 250 ml @ 125 mls/hr Q12H IVPB ; Start 01/19/19 at 17:00 Allergies: Coded Allergies: No Known Allergy (Unverified , 01/18/19) Social History Alcohol Use: heavy Smoking Status: Never smoker Drug Use: other (unknown) Exam/Review of Systems Exam Vitals Vital Signs Date Temp Pulse Resp B/P (MAP) Pulse Ox O2 O2 Flow FiO2 Time Delivery Rate 01/19/19 100.0 14:32 01/19/19 109 19 129/94 97 Nasal 13:56 (106) Cannula 01/19/19 2.0 08:00 Intake and Output 01/18/19 01/18/19 01/19/19 1515:00 23:00 07:00 IntakeIntake Total 2370 ml 105 ml 1500 ml BalanceBalance 2370 ml 105 ml 1500 ml Exam PHYSICAL EXAMINATION: GENERAL: Well developed, well nourished, lethargic, confused, in no acute distress SKIN: No lesions, scattered ecchymosis, no evidence of bleeding diathesis LYMPHATIC: No palpable lymphadenopathy. HEAD: Normocephalic, atraumatic, no tenderness. EYES: Pupils equal reactive to light and accommodation, full extraocular movements, sclera clear, non-icteric, no discharge. EARS/NOSE AND THROAT: Ears normal, nose normal, oropharynx normal, oral membranes well hydrated without lesions. NECK: Supple, no masses, thyroid normal, JVP within normal limits, carotids normal without bruits. CHEST: Inspection within normal limits. CARDIOVASCULAR: Heart: Regular rate and rhythm, no murmurs, gallops or rubs. Peripheral pulses present within normal limits, no cyanosis, clubbing or edemas. No pulsatile abdominal mass RESPIRATORY: Lungs clear to auscultation and percussion, no wheezing, no rubs GASTROINTESTINAL AND LIVER: Abdomen: Soft, non tenderness, non-distended, no hernias, no masses, no organomegaly, no ascites, no guarding, no rebound tenderness, normoactive bowel sounds. Rectal: Deferred. GENITOURINARY: Male genitalia within normal limits.] EXTREMITIES: No cyanosis, clubbing or edema. Results Result Diagram: 01/19/19 0440 01/19/19 0440 Results 24hrs Laboratory Tests Test 01/18/19 17:37 01/18/19 23:22 01/18/19 23:23 01/19/19 03:00 Hepatitis B Surface NEGATIVE Antigen Hepatitis B Core NEGATIVE Total Antibody Hepatitis C Antibody NEGATIVE Parathyroid Hormone 5.4 L Immunoglobulin A 652 H Immunoglobulin G 1607 H Immunoglobulin M 240 H Alpha Fetoprotein 2.20 Urine Color YELLOW Urine Clarity CLEAR Urine pH 6.0 Urine Specific [place] 1.009 Urine Ketones TRACE A Urine Nitrite NEGATIVE Urine Bilirubin NEGATIVE Urine Urobilinogen NEGATIVE Urine Leukocyte Esterase NEGATIVE Urine Hemoglobin NEGATIVE Urine Glucose NEGATIVE Urine Total Protein NEGATIVE Urine Opiates Screen Negative Urine Barbiturates Negative Urine Amphetamines Negative Screen Urine Benzodiazepines Negative Screen Urine Cocaine Screen Negative Urine Cannabinoids Negative Test 01/19/19 04:40 01/19/19 14:20 White Blood Count 9.4 # Red Blood Count 3.56 L Hemoglobin 10.2 L Hematocrit 32.4 L Mean Corpuscular Volume 91.0 Mean Corpuscular 28.7 L Hemoglobin Mean Corpuscular 31.5 L Hemoglobin Concent Red Cell Distribution 14.6 H Width Platelet Count 274 # Mean Platelet Volume 8.5 Immature Granulocytes % 0.500 H Neutrophils % 82.8 H Lymphocytes % 9.1 L Monocytes % 6.8 Eosinophils % 0.6 Basophils % 0.2 Nucleated Red Blood 0.0 Cells % Immature Granulocytes # 0.050 H Neutrophils # 7.8 H Lymphocytes # 0.9 Monocytes # 0.6 Eosinophils # 0.1 Basophils # 0.0 Nucleated Red Blood 0.0 Cells # Sodium Level 144 Potassium Level 3.7 Chloride Level 108 Carbon Dioxide Level 30 Anion Gap 6 Blood Urea Nitrogen 24 H Creatinine 1.05 Est Glomerular Filtrat > 60 Rate mL/min Glucose Level 63 #L Hemoglobin A1c 5.0 Calcium Level 14.3 #*H 13.2 *H Phosphorus Level 3.3 Magnesium Level 1.9 Total Bilirubin 1.2 Direct Bilirubin 0.00 Indirect Bilirubin 1.2 H Aspartate Amino 120 H Transf (AST/SGOT) Alanine 49 Aminotransferase (ALT/SG PT) Alkaline Phosphatase 386 H Total Protein 6.5 # Albumin 2.8 #L Globulin 3.70 H Albumin/Globulin Ratio 0.75 Triglycerides Level 85 Cholesterol Level 129 LDL Cholesterol, 90 Calculated HDL Cholesterol 22 L Cholesterol/HDL Ratio 5.8 Thyroid Stimulating 1.370 Hormone (TSH) Free Thyroxine Index 3.90 H Thyroxine (T4) 7.3 Triiodothyronine (T3) 53.4 H Uptake Lactic Acid Level 1.8 Medications Medication Current Medications Folic Acid (Folic Acid) 1 mg DAILY PO ; Start 01/19/19 at 09:00 Furosemide (Lasix) 20 mg DAILY PO ; Start 01/19/19 at 09:00 Lactulose (Enulose) 10 gm BID PO ; Start 01/18/19 at 21:00 Multivitamins Therapeutic (Theragran) 1 tab DAILY PO ; Start 01/19/19 at 09:00 Pantoprazole (Protonix Tab) 40 mg AC BREAKFAST PO ; Start 01/19/19 at 07:00 Propranolol HCl (Inderal) 20 mg BID PO ; Start 01/18/19 at 21:00 Thiamine HCl (Vitamin B1) 100 mg DAILY PO ; Start 01/19/19 at 09:00 IV Flush (NS 3 ml) 3 ml PER PROTOCOL IV ; Start 01/18/19 at 17:30 Ondansetron HCl (Zofran Inj) 4 mg Q6H PRN IV NAUSEA/VOMITING; Start 01/18/19 at 17:30 Acetaminophen (Tylenol Supp) [address] .PAIN 1-3 OR TEMP Last administered on 01/19/19at 13:47; Admin Dose 650 MG; Start 01/18/19 at 17:30 Enoxaparin Sodium (Lovenox) 40 mg DAILY SC Last administered on 01/19/19at 09:51; Admin Dose 40 MG; Start 01/19/19 at 09:00 Sodium Chloride 1,000 ml @ 125 mls/hr Q8H IV Last administered on 01/19/19at 16:21; Admin Dose 125 MLS/HR; Start 01/18/19 at 17:30 Lorazepam (Ativan) 1 mg Q6H PRN IV AGITATION/ANXIETY Last administered on 01/19/19at 14:44; Admin Dose 1 MG; Start 01/19/19 at 14:30 Cefepime HCl 50 ml @ 100 mls/hr Q8 IVPB Last administered on 01/19/19at 16:20; Admin Dose 100 MLS/HR; Start 01/19/19 at 16:00 Vancomycin HCl (Vanco Iv Per Pharmacy) 1 ea Per Rx Protocol XX ; Start 01/19/19 at 14:30 Vancomycin HCl 250 ml @ 125 mls/hr Q12H IVPB ; Start 01/19/19 at 17:00 RUSLAN KERN NP Jan 19, 2019 17:12
[2019-01-19] MEDS: VANCOMYCIN 1 GM 250 ML IVPB SCH (17:32)
[2019-01-19 19:21] VITALS: BP 129/61; PULSE 87; RESP 19
[2019-01-20 02:33] VITALS: BP 123/56; PULSE 69
[2019-01-20] MEDS: SOD CHLORIDE 0.9% 1,000 ML IV SCH ×3 (03:25→17:06)
[2019-01-20] MEDS: VANCOMYCIN 1 GM 250 ML IVPB SCH ×2 (05:12→18:58)
[2019-01-20] MEDS: PANTOPRAZOLE (EC) 40 MG TAB PO SCH (06:07)
[2019-01-20] MEDS: CEFEPIME 2GM/50 ML (PMX) 50 ML IVPB SCH ×3 (06:07→21:53)
[2019-01-20 07:25] VITALS: BP 123/68; PULSE 75; RESP 18
[2019-01-20] MEDS: FUROSEMIDE 20 MG TAB PO SCH (09:00)
[2019-01-20] MEDS: PROPRANOLOL 20 MG TAB PO SCH ×2 (09:00→21:00)
[2019-01-20] MEDS: FOLIC ACID 1 MG TAB PO SCH (09:00)
[2019-01-20] MEDS: MULTIVITAMINS THERAPEUTIC TAB PO SCH (09:00)
[2019-01-20] MEDS: LACTULOSE 30ML CUP PO SCH ×2 (09:00→21:00)
[2019-01-20] MEDS: THIAMINE 100 MG TAB PO SCH (09:00)
--- NOTE | 2019-01-20 09:07 | CONS ---
Assessment/Plan Assessment/Plan Assessment/Plan (Daily) Liver cirrhosis Fluid and electrolyte abnormalities Dehydration Possible hepatocellular carcinoma Sepsis syndrome Patient remains profoundly encephalopathic I have had long talk with patient son and brother. It is their opinion that irrespective of whatever medical problem he has they are not interested in a aggressive approach in his code status is been changed to do not resuscitate prior to this consultation. Patient son speaks on behalf of the family and realizes that it if he has an underlying malignancy there are very few options for aggressive intervention secondary to his underlying core clinical condition and performance status. I spoke to them about hospice care son is very receptive to this I will place a hospice evaluation. Consultation Date/Type/Reason Admit Date/Time Date/Time of Note DATE: 01/20/19 TIME: 08:59 Hx of Present Illness Consultation note for date January 19, 2019. All information from patient's medical records and speak to family members at bedside. Patient is homeless and has not been seen by his family for many years. Approximately two weeks ago patient son heard from family friends that his father was ill, so drinking heavily, possibly using street drugs and was in need of medical attention. Patient brought his father to an outside hospital we do not have medical records from that h ospitalization. However he was told his father had liver cancer, and that his diagnosis and his medical condition would only get worse. Patient was admitted to [facility] altered mental status, workups in progress patient is not improved from a cognitive and point. Dehydration, fluid and electrolyte disorders are being addressed workup is being completed concerning possible underlying liver mass. However in reviewing all possibilities patient son he is reconciled to the affected his father will not improve based on what he has both been told by the outside physicians the fact that his father is not taking care of himself for many years secondary to alcoholism and probable complications of liver cirrhosis by reviewing medical records. Biopsy of the liver was [facility] outside facility was delayed secondary to insurance reasons. Past Medical History Medical History: other (unkniwn) Home Meds Reported Medications Omeprazole* (Omeprazole*) 20 Mg Capsule., 40 MG PO DAILY, #30 CAP 01/18/19 Folic Acid* (Folic Acid*) 1 Mg Tablet, 1 MG PO DAILY, TAB 01/18/19 Pantoprazole* (Pantoprazole*) 40 Mg Tablet., 40 MG PO AC BREAKFAST, TAB 01/18/19 Multivitamins* (Theragran*) 1 Tab Tab, 1 TAB PO DAILY, TAB 01/18/19 Propranolol Hcl* (Propranolol Hcl*) 20 Mg Tablet, 20 MG PO BID, TAB 01/18/19 Tramadol Hcl* (Ultram*) 50 Mg Tablet, 50 MG PO Q12H PRN for PAIN, TAB 01/18/19 Thiamine* (Vitamin B-1*) 100 Mg Tablet, 100 MG PO DAILY, TAB 01/18/19 Furosemide* (Furosemide*) 20 Mg Tablet, 20 MG PO DAILY, #60 TAB 01/18/19 Lactulose* (Lactulose*) 10 Gm/15 Ml Solution, 15 ML PO BID, ML 01/18/19 Medications Current Medications Folic Acid (Folic Acid) 1 mg DAILY PO ; Start 01/19/19 at 09:00 Furosemide (Lasix) 20 mg DAILY PO ; Start 01/19/19 at 09:00 Lactulose (Enulose) 10 gm BID PO ; Start 01/18/19 at 21:00 Multivitamins Therapeutic (Theragran) 1 tab DAILY PO ; Start 01/19/19 at 09:00 Pantoprazole (Protonix Tab) 40 mg AC BREAKFAST PO ; Start 01/19/19 at 07:00 Propranolol HCl (Inderal) 20 mg BID PO ; Start 01/18/19 at 21:00 Thiamine HCl (Vitamin B1) 100 mg DAILY PO ; Start 01/19/19 at 09:00 IV Flush (NS 3 ml) 3 ml PER PROTOCOL IV ; Start 01/18/19 at 17:30 Ondansetron HCl (Zofran Inj) 4 mg Q6H PRN IV NAUSEA/VOMITING; Start 01/18/19 at 17:30 Acetaminophen (Tylenol Supp) 650 mg Q6H PRN [place] .PAIN 1-3 OR TEMP Last administered on 01/19/19at 13:47; Admin Dose 650 MG; Start 01/18/19 at 17:30 Enoxaparin Sodium (Lovenox) 40 mg DAILY SC Last administered on 01/19/19at 09:51; Admin Dose 40 MG; Start 01/19/19 at 09:00 Sodium Chloride 1,000 ml @ 125 mls/hr Q8H IV Last administered on 01/20/19at 03:25; Admin Dose 125 MLS/HR; Start 01/18/19 at 17:30 Lorazepam (Ativan) 1 mg Q6H PRN IV AGITATION/ANXIETY Last administered on 01/19/19at 14:44; Admin Dose 1 MG; Start 01/19/19 at 14:30 Cefepime HCl 50 ml @ 100 mls/hr Q8 IVPB Last administered on 01/20/19at 06:07; Admin Dose 100 MLS/HR; Start 01/19/19 at 16:00 Vancomycin HCl (Vanco Iv Per Pharmacy) 1 ea Per Rx Protocol XX ; Start 01/19/19 at 14:30 Vancomycin HCl 250 ml @ 125 mls/hr Q12H IVPB Last administered on 01/20/19at 05:12; Admin Dose 125 MLS/HR; Start 01/19/19 at 17:00 Allergies: Coded Allergies: No Known Allergy (Unverified , 01/18/19) Past Surgical History Past Surgical Hx: other (unknoiwn) Social History Alcohol Use: heavy Smoking Status: Current every day smoker Drug Use: other (unknown) Exam/Review of Systems Exam Vitals Vital Signs Date Temp Pulse Resp B/P (MAP) Pulse Ox O2 O2 Flow FiO2 Time Delivery Rate 01/20/19 98.9 75 18 123/68 95 Nasal 07:25 (86) Cannula 01/19/19 2.0 20:00 Intake and Output 01/19/19 01/19/19 01/20/19 1515:00 23:00 07:00 IntakeIntake Total 1350 ml 425 ml BalanceBalance 1350 ml 425 ml Constitutional: non-verbal, distress, frail Eyes: icteric ENMT: nl external ears & nose, nl lips & teeth, nl nasal mucosa & septum Neck: supple, non-tender Respiratory: clear to auscultation, normal air movement Cardiovascular: regular rate and rhythm, nl pulses Gastrointestinal: bowel sounds, hepatomegaly, tender Neurological: confused, lethargic, other Skin: other (jaundiced) Results Result Diagram: 01/19/19 0440 01/20/19 0513 Results 24hrs Laboratory Tests Test 01/19/19 14:20 01/19/19 17:14 01/20/19 05:13 Lactic Acid Level 1.8 1.6 Calcium Level 13.2 *H Blood Urea Nitrogen 30 H Creatinine 1.08 Medications Medication Current Medications Folic Acid (Folic Acid) 1 mg DAILY PO ; Start 01/19/19 at 09:00 Furosemide (Lasix) 20 mg DAILY PO ; Start 01/19/19 at 09:00 Lactulose (Enulose) 10 gm BID PO ; Start 01/18/19 at 21:00 Multivitamins Therapeutic (Theragran) 1 tab DAILY PO ; Start 01/19/19 at 09:00 Pantoprazole (Protonix Tab) 40 mg AC BREAKFAST PO ; Start 01/19/19 at 07:00 Propranolol HCl (Inderal) 20 mg BID PO ; Start 01/18/19 at 21:00 Thiamine HCl (Vitamin B1) 100 mg DAILY PO ; Start 01/19/19 at 09:00 IV Flush (NS 3 ml) 3 ml PER PROTOCOL IV ; Start 01/18/19 at 17:30 Ondansetron HCl (Zofran Inj) 4 mg Q6H PRN IV NAUSEA/VOMITING; Start 01/18/19 at 17:30 Acetaminophen (Tylenol Supp) 650 mg Q6H PRN [place] .PAIN 1-3 OR TEMP Last administered on 01/19/19at 13:47; Admin Dose 650 MG; Start 01/18/19 at 17:30 Enoxaparin Sodium (Lovenox) 40 mg DAILY SC Last administered on 01/19/19at 09:51; Admin Dose 40 MG; Start 01/19/19 at 09:00 Sodium Chloride 1,000 ml @ 125 mls/hr Q8H IV Last administered on 01/20/19at 03:25; Admin Dose 125 MLS/HR; Start 01/18/19 at 17:30 Lorazepam (Ativan) 1 mg Q6H PRN IV AGITATION/ANXIETY Last administered on 01/19/19at 14:44; Admin Dose 1 MG; Start 01/19/19 at 14:30 Cefepime HCl 50 ml @ 100 mls/hr Q8 IVPB Last administered on 01/20/19at 06:07; Admin Dose 100 MLS/HR; Start 01/19/19 at 16:00 Vancomycin HCl (Vanco Iv Per Pharmacy) 1 ea Per Rx Protocol XX ; Start 01/19/19 at 14:30 Vancomycin HCl 250 ml @ 125 mls/hr Q12H IVPB Last administered on 01/20/19at 05:12; Admin Dose 125 MLS/HR; Start 01/19/19 at 17:00 FLORINA MCCLURE Jan 20, 2019 09:07
[2019-01-20] MEDS: ENOXAPARIN 40 MG/0.4 ML SYG SC SCH (09:23)
--- NOTE | 2019-01-20 10:57 | PN ---
Date/Time of Note Date/Time of Note DATE: 01/20/19 TIME: 10:54 Assessment/Plan VTE Prophylaxis Risk score (from Ns)>0 risk: 4 SCD applied (from Nsg): Yes Pharmacological prophylaxis: LMWH Lines/Catheters IV Catheter Type (from Nrsg): Peripheral IV Urinary Cath still in place: No Assessment/Plan Hospital Course Assessment and plan 1. ALOC. Likely secondary to his alcoholic liver cirrhosis. - CT imaging of his head showed no evidence of acute renal pathology. - continue reorientation. 2. Liver mass suspect malignant. - Was recently diagnosed 2 weeks ago at [facility] that patient had a liver mass. Plan for Biopsy of this was pending. Discussed with patient's family Michelle, who said that at this time they only want comfort measures for the patient and would not like any further invasive diagnostic procedure 01/18/19. - dairy department manager following. - palliative care physician following 3. Hypercalcemia. - continue fluid resuscitation, calcitonin - f/u level 3. History of alcoholic liver cirrhosis. - Monitor LFT. 4. Elevated creatinine kinase. - continue IVF 5. Leukocytosis. - f/u cultures - suspect sepsis? - continue abx 6. History of homelessness. - case reviewer following DISPO/PLAN; AM labs are pending continue supportive care. f/u family for goals of care and consideration of hospice Discussed POC with Dr. Lopez Result Diagram: 01/19/19 0440 01/20/19 0513 Results 24hrs Laboratory Tests Test 01/19/19 14:20 01/19/19 17:14 01/20/19 05:13 Lactic Acid Level 1.8 1.6 Calcium Level 13.2 *H Blood Urea Nitrogen 30 H Creatinine 1.08 Subjective 24 Hr Interval Summary Free Text/Dictation still confused. no s/s/ of distress Exam/Review of Systems Exam Vitals Vital Signs Date Temp Pulse Resp B/P (MAP) Pulse Ox O2 O2 Flow FiO2 Time Delivery Rate 01/20/19 98.9 75 18 123/68 95 Nasal 07:25 (86) Cannula 01/19/19 2.0 20:00 Intake and Output 01/19/19 01/19/19 01/20/19 1515:00 23:00 07:00 IntakeIntake Total 1350 ml 425 ml BalanceBalance 1350 ml 425 ml Exam Constitutional: No alert, No oriented Eyes: icteric Neck: supple Respiratory: diminished breath sounds Gastrointestinal: soft, tender Neurological: No nl mental status, No nl speech Results Results 24hrs Laboratory Tests Test 01/19/19 14:20 01/19/19 17:14 01/20/19 05:13 Lactic Acid Level 1.8 1.6 Calcium Level 13.2 *H Blood Urea Nitrogen 30 H Creatinine 1.08 Medications Medication Current Medications Folic Acid (Folic Acid) 1 mg DAILY PO ; Start 01/19/19 at 09:00 Furosemide (Lasix) 20 mg DAILY PO ; Start 01/19/19 at 09:00 Lactulose (Enulose) 10 gm BID PO ; Start 01/18/19 at 21:00 Multivitamins Therapeutic (Theragran) 1 tab DAILY PO ; Start 01/19/19 at 09:00 Pantoprazole (Protonix Tab) 40 mg AC BREAKFAST PO ; Start 01/19/19 at 07:00 Propranolol HCl (Inderal) 20 mg BID PO ; Start 01/18/19 at 21:00 Thiamine HCl (Vitamin B1) 100 mg DAILY PO ; Start 01/19/19 at 09:00 IV Flush (NS 3 ml) 3 ml PER PROTOCOL IV ; Start 01/18/19 at 17:30 Ondansetron HCl (Zofran Inj) 4 mg Q6H PRN IV NAUSEA/VOMITING; Start 01/18/19 at 17:30 Acetaminophen (Tylenol Supp) 650 mg Q6H PRN [place] .PAIN 1-3 OR TEMP Last administered on 01/19/19at 13:47; Admin Dose 650 MG; Start 01/18/19 at 17:30 Enoxaparin Sodium (Lovenox) 40 mg DAILY SC Last administered on 01/20/19at 09:23; Admin Dose 40 MG; Start 01/19/19 at 09:00 Sodium Chloride 1,000 ml @ 125 mls/hr Q8H IV Last administered on 01/20/19at 03:25; Admin Dose 125 MLS/HR; Start 01/18/19 at 17:30 Lorazepam (Ativan) 1 mg Q6H PRN IV AGITATION/ANXIETY Last administered on 01/19/19at 14:44; Admin Dose 1 MG; Start 01/19/19 at 14:30 Cefepime HCl 50 ml @ 100 mls/hr Q8 IVPB Last administered on 01/20/19at 06:07; Admin Dose 100 MLS/HR; Start 01/19/19 at 16:00 Vancomycin HCl (Vanco Iv Per Pharmacy) 1 ea Per Rx Protocol XX ; Start 01/19/19 at 14:30 Vancomycin HCl 250 ml @ 125 mls/hr Q12H IVPB Last administered on 01/20/19at 05:12; Admin Dose 125 MLS/HR; Start 01/19/19 at 17:00 Miscellaneous Information (*Rx Drug Level Order Reminder*) VANCO TROUGH @ 0,400 ON... 0400 ONCE XX ; Start 01/21/19 at 04:00; Stop 01/21/19 at 04:01 NILAY TOMLINSON NP Jan 20, 2019 10:57
[2019-01-20] MEDS: LORAZEPAM 2 MG INJ IV PRN (11:34)
[2019-01-20] MEDS: POTASSIUM CHLORIDE 100 ML IVPB SCH ×2 (14:48→17:06)
[2019-01-20 15:25] VITALS: BP 174/71; PULSE 71; RESP 19
[2019-01-20] MEDS ORDERED: hydrALAzine 20 MG INJ IV PRN (17:00)
[2019-01-20 17:04] VITALS: BP 138/65; PULSE 73; RESP 20
--- NOTE | 2019-01-20 19:08 | CONS ---
Assessment/Plan Assessment/Plan Assessment/Plan (Daily) Patient with large liver mass and hypercalcemia. Interesting case, but family has decided for no further work up per notes and nurse. Will sign off. Please call if further issues. Consultation Date/Type/Reason Admit Date/Time Jan 18, 2019 at 14:37 Initial Consult Date 01/19/19 Type of Consult Heme Onc for Meghan Date/Time of Note DATE: 01/20/19 TIME: 19:06 24 HR Interval Summary Free Text/Dictation Patient remains confused. No family present. Reviewed notes and discussed with nurse, family does not want biopsy or interventions, planning hospice. Exam/Review of Systems Exam Vitals Vital Signs Date Temp Pulse Resp B/P (MAP) Pulse Ox O2 O2 Flow FiO2 Time Delivery Rate 01/20/19 98.0 73 20 138/65 98 Nasal 17:04 (89) Cannula 01/20/19 2.0 08:30 Intake and Output 01/19/19 01/19/19 01/20/19 1515:00 23:00 07:00 IntakeIntake Total 1350 ml 425 ml BalanceBalance 1350 ml 425 ml Exam lethargic but comfortable in bed. Results Result Diagram: 01/20/19 1149 01/20/19 1149 Results 24hrs Laboratory Tests Test 01/20/19 05:13 01/20/19 11:49 Blood Urea Nitrogen 30 H 30 H Creatinine 1.08 0.97 White Blood Count 5.1 # Red Blood Count 3.18 L Hemoglobin 9.3 L Hematocrit 28.8 L Mean Corpuscular Volume 90.6 Mean Corpuscular Hemoglobin 29.2 Mean Corpuscular Hemoglobin Concent 32.3 Red Cell Distribution Width 15.0 H Platelet Count 173 # Mean Platelet Volume 8.6 Immature Granulocytes % 0.600 H Neutrophils % 81.9 H Lymphocytes % 9.9 L Monocytes % 7.2 Eosinophils % 0.2 Basophils % 0.2 Nucleated Red Blood Cells % 0.0 Immature Granulocytes # 0.030 Neutrophils # 4.2 Lymphocytes # 0.5 L Monocytes # 0.4 Eosinophils # 0.0 Basophils # 0.0 Nucleated Red Blood Cells # 0.0 Sodium Level 147 H Potassium Level 2.7 *L Chloride Level 115 H Carbon Dioxide Level 27 Anion Gap 5 Est Glomerular Filtrat Rate mL/min > 60 Glucose Level 84 Calcium Level 10.8 #H Total Bilirubin 0.7 Direct Bilirubin 0.00 Indirect Bilirubin 0.7 Aspartate Amino Transf (AST/SGOT) 116 H Alanine Aminotransferase (ALT/SGPT) 47 Alkaline Phosphatase 313 H Total Protein 6.6 Albumin 2.6 L Globulin 4.00 H Albumin/Globulin Ratio 0.65 Medications Medication Current Medications Folic Acid (Folic Acid) 1 mg DAILY PO ; Start 01/19/19 at 09:00 Furosemide (Lasix) 20 mg DAILY PO ; Start 01/19/19 at 09:00 Lactulose (Enulose) 10 gm BID PO ; Start 01/18/19 at 21:00 Multivitamins Therapeutic (Theragran) 1 tab DAILY PO ; Start 01/19/19 at 09:00 Pantoprazole (Protonix Tab) 40 mg AC BREAKFAST PO ; Start 01/19/19 at 07:00 Propranolol HCl (Inderal) 20 mg BID PO ; Start 01/18/19 at 21:00 Thiamine HCl (Vitamin B1) 100 mg DAILY PO ; Start 01/19/19 at 09:00 IV Flush (NS 3 ml) 3 ml PER PROTOCOL IV ; Start 01/18/19 at 17:30 Ondansetron HCl (Zofran Inj) 4 mg Q6H PRN IV NAUSEA/VOMITING; Start 01/18/19 at 17:30 Acetaminophen (Tylenol Supp) 650 mg Q6H PRN [place] .PAIN 1-3 OR TEMP Last administe red on 01/19/19at 13:47; Admin Dose 650 MG; Start 01/18/19 at 17:30 Enoxaparin Sodium (Lovenox) 40 mg DAILY SC Last administered on 01/20/19at 09:23; Admin Dose 40 MG; Start 01/19/19 at 09:00 Sodium Chloride 1,000 ml @ 125 mls/hr Q8H IV Last administered on 01/20/19at 17:06; Admin Dose 125 MLS/HR; Start 01/18/19 at 17:30 Lorazepam (Ativan) 1 mg Q6H PRN IV AGITATION/ANXIETY Last administered on 01/20/19at 11:34; Admin Dose 1 MG; Start 01/19/19 at 14:30 Cefepime HCl 50 ml @ 100 mls/hr Q8 IVPB Last administered on 01/20/19at 14:49; Admin Dose 100 MLS/HR; Start 01/19/19 at 16:00 Vancomycin HCl (Vanco Iv Per Pharmacy) 1 ea Per Rx Protocol XX ; Start 01/19/19 at 14:30 Vancomycin HCl 250 ml @ 125 mls/hr Q12H IVPB Last administered on 01/20/19at 18:58; Admin Dose 125 MLS/HR; Start 01/19/19 at 17:00 Miscellaneous Information (*Rx Drug Level Order Reminder*) VANCO TROUGH @ 0,400 ON... 0400 ONCE XX ; Start 01/21/19 at 04:00; Stop 01/21/19 at 04:01 Hydralazine HCl (Apresoline) 10 mg Q4H PRN IV ELEVATED BLOOD PRESSURE >160; Start 01/20/19 at 17:00 PANTERA ELLSWORTH MD Jan 20, 2019 19:08
[2019-01-20 20:21] VITALS: BP 123/62; PULSE 71; RESP 18
[2019-01-21 02:01] VITALS: BP 111/57; PULSE 69; RESP 18
[2019-01-21] MEDS: SOD CHLORIDE 0.9% 1,000 ML IV SCH ×4 (03:40→17:30)
[2019-01-21] MEDS: CEFEPIME 2GM/50 ML (PMX) 50 ML IVPB SCH ×3 (05:15→21:06)
[2019-01-21] MEDS: POTASSIUM CHLORIDE 100 ML IVPB SCH ×4 (06:16→12:56)
[2019-01-21] MEDS: PANTOPRAZOLE (EC) 40 MG TAB PO SCH (06:39)
[2019-01-21 08:03] VITALS: BP 135/60; PULSE 68; RESP 68
[2019-01-21] MEDS: THIAMINE 100 MG TAB PO SCH (08:43)
[2019-01-21] MEDS: MULTIVITAMINS THERAPEUTIC TAB PO SCH (08:43)
[2019-01-21] MEDS: PROPRANOLOL 20 MG TAB PO SCH ×2 (08:43→21:00)
[2019-01-21] MEDS: LACTULOSE 30ML CUP PO SCH ×2 (08:43→21:00)
[2019-01-21] MEDS: FUROSEMIDE 20 MG TAB PO SCH (08:43)
[2019-01-21] MEDS: FOLIC ACID 1 MG TAB PO SCH (08:43)
[2019-01-21] MEDS: ENOXAPARIN 40 MG/0.4 ML SYG SC SCH (09:04)
--- NOTE | 2019-01-21 09:25 | PN ---
Date/Time of Note Date/Time of Note DATE: 01/21/19 TIME: 09:21 Assessment/Plan VTE Prophylaxis Risk score (from Ns)>0 risk: 8 SCD applied (from Ns): Yes Pharmacological prophylaxis: LMWH Lines/Catheters IV Catheter Type (from Nrs): Peripheral IV Urinary Cath still in place: No Assessment/Plan Hospital Course Assessment and plan 1. ALOC. Likely secondary to his alcoholic liver cirrhosis. - CT imaging of his head showed no evidence of acute renal pathology. - continue reorientation. 2. Liver mass suspect malignant. - Was recently diagnosed 2 weeks ago at [facility] that patient had a liver mass. Plan for Biopsy of this was pending. Discussed with patient's family Michelle, who said that at this time they only want comfort measures for the patient and would not like any further invasive diagnostic procedure 01/18/19. - application services manager following. - palliative care physician following 3. Hypercalcemia - s/p calcitonin/zometa - improved - monitor 3. History of alcoholic liver cirrhosis. - Monitor LFT. 4. Elevated creatinine kinase. - continue IVF 5. Leukocytosis. - f/u final cultures - suspect sepsis? - continue abx 6. History of homelessness. - showcase trimmer following DISPO/PLAN: Plan for hospice per family. follow up case management. continue supportive care Discussed POC with Dr. Lopez Result Diagram: 01/20/19 1149 01/21/19 0402 Results 24hrs Laboratory Tests Test 01/20/19 11:49 01/21/19 04:02 White Blood Count 5.1 # Red Blood Count 3.18 L Hemoglobin 9.3 L Hematocrit 28.8 L Mean Corpuscular Volume 90.6 Mean Corpuscular Hemoglobin 29.2 Mean Corpuscular Hemoglobin Concent 32.3 Red Cell Distribution Width 15.0 H Platelet Count 173 # Mean Platelet Volume 8.6 Immature Granulocytes % 0.600 H Neutrophils % 81.9 H Lymphocytes % 9.9 L Monocytes % 7.2 Eosinophils % 0.2 Basophils % 0.2 Nucleated Red Blood Cells % 0.0 Immature Granulocytes # 0.030 Neutrophils # 4.2 Lymphocytes # 0.5 L Monocytes # 0.4 Eosinophils # 0.0 Basophils # 0.0 Nucleated Red Blood Cells # 0.0 Sodium Level 147 H 150 H Potassium Level 2.7 *L 2.6 *L Chloride Level 115 H 118 H Carbon Dioxide Level 27 28 Anion Gap 5 4 L Blood Urea Nitrogen 30 H 28 H Creatinine 0.97 0.99 Est Glomerular Filtrat Rate mL/min > 60 > 60 Glucose Level 84 81 Calcium Level 10.8 #H 9.7 Total Bilirubin 0.7 0.7 Direct Bilirubin 0.00 0.00 Indirect Bilirubin 0.7 0.7 Aspartate Amino Transf (AST/SGOT) 116 H 106 H Alanine Aminotransferase (ALT/SGPT) 47 42 Alkaline Phosphatase 313 H 325 H Total Protein 6.6 6.1 Albumin 2.6 L 2.5 L Globulin 4.00 H 3.60 H Albumin/Globulin Ratio 0.65 0.69 Vancomycin Level Trough 25.1 *H Subjective 24 Hr Interval Summary Free Text/Dictation still with confusion. no purposeful response Exam/Review of Systems Exam Vitals Vital Signs Date Temp Pulse Resp B/P (MAP) Pulse Ox O2 O2 Flow FiO2 Time Delivery Rate 01/21/19 98.9 68 68 135/60 97 Room Air 08:03 (85) 01/20/19 2.0 20:00 Intake and Output 01/20/19 01/20/19 01/21/19 1515:00 23:00 07:00 IntakeIntake Total 250 ml 1175 ml 1425 ml BalanceBalance 250 ml 1175 ml 1425 ml Exam Constitutional: No alert, No oriented Eyes: icteric Neck: supple Respiratory: diminished breath sounds Gastrointestinal: soft, tender Neurological: No nl mental status, No nl speech Results Results 24hrs Laboratory Tests Test 01/20/19 11:49 01/21/19 04:02 White Blood Count 5.1 # Red Blood Count 3.18 L Hemoglobin 9.3 L Hematocrit 28.8 L Mean Corpuscular Volume 90.6 Mean Corpuscular Hemoglobin 29.2 Mean Corpuscular Hemoglobin Concent 32.3 Red Cell Distribution Width 15.0 H Platelet Count 173 # Mean Platelet Volume 8.6 Immature Granulocytes % 0.600 H Neutrophils % 81.9 H Lymphocytes % 9.9 L Monocytes % 7.2 Eosinophils % 0.2 Basophils % 0.2 Nucleated Red Blood Cells % 0.0 Immature Granulocytes # 0.030 Neutrophils # 4.2 Lymphocytes # 0.5 L Monocytes # 0.4 Eosinophils # 0.0 Basophils # 0.0 Nucleated Red Blood Cells # 0.0 Sodium Level 147 H 150 H Potassium Level 2.7 *L 2.6 *L Chloride Level 115 H 118 H Carbon Dioxide Level 27 28 Anion Gap 5 4 L Blood Urea Nitrogen 30 H 28 H Creatinine 0.97 0.99 Est Glomerular Filtrat Rate mL/min > 60 > 60 Glucose Level 84 81 Calcium Level 10.8 #H 9.7 Total Bilirubin 0.7 0.7 Direct Bilirubin 0.00 0.00 Indirect Bilirubin 0.7 0.7 Aspartate Amino Transf (AST/SGOT) 116 H 106 H Alanine Aminotransferase (ALT/SGPT) 47 42 Alkaline Phosphatase 313 H 325 H Total Protein 6.6 6.1 Albumin 2.6 L 2.5 L Globulin 4.00 H 3.60 H Albumin/Globulin Ratio 0.65 0.69 Vancomycin Level Trough 25.1 *H Medications Medication Current Medications Folic Acid (Folic Acid) 1 mg DAILY PO ; Start 01/19/19 at 09:00 Furosemide (Lasix) 20 mg DAILY PO ; Start 01/19/19 at 09:00 Lactulose (Enulose) 10 gm BID PO ; Start 01/18/19 at 21:00 Multivitamins Therapeutic (Theragran) 1 tab DAILY PO ; Start 01/19/19 at 09:00 Pantoprazole (Protonix Tab) 40 mg AC BREAKFAST PO ; Start 01/19/19 at 07:00 Propranolol HCl (Inderal) 20 mg BID PO ; Start 01/18/19 at 21:00 Thiamine HCl (Vitamin B1) 100 mg DAILY PO ; Start 01/19/19 at 09:00 IV Flush (NS 3 ml) 3 ml PER PROTOCOL IV ; Start 01/18/19 at 17:30 Ondansetron HCl (Zofran Inj) 4 mg Q6H PRN IV NAUSEA/VOMITING; Start 01/18/19 at 17:30 Acetaminophen (Tylenol Supp) 650 mg Q6H PRN [place] .PAIN 1-3 OR TEMP Last administered on 01/19/19at 13:47; Admin Dose 650 MG; Start 01/18/19 at 17:30 Enoxaparin Sodium (Lovenox) 40 mg DAILY SC Last administered on 01/21/19at 09:04; Admin Dose 40 MG; Start 01/19/19 at 09:00 Sodium Chloride 1,000 ml @ 125 mls/hr Q8H IV Last administered on 01/21/19at 03:40; Admin Dose 125 MLS/HR; Start 01/18/19 at 17:30 Lorazepam (Ativan) 1 mg Q6H PRN IV AGITATION/ANXIETY Last administered on 01/20/19at 11:34; Admin Dose 1 MG; Start 01/19/19 at 14:30 Cefepime HCl 50 ml @ 100 mls/hr Q8 IVPB Last administered on 01/21/19at 05:15; Admin Dose 100 MLS/HR; Start 01/19/19 at 16:00 Vancomycin HCl (Vanco Iv Per Pharmacy) 1 ea Per Rx Protocol XX ; Start 01/19/19 at 14:30 Hydralazine HCl (Apresoline) 10 mg Q4H PRN IV ELEVATED BLOOD PRESSURE >160; Start 01/20/19 at 17:00 Potassium Chloride 100 ml @ 50 mls/hr Q2H IVPB Last administered on 01/21/19at 08:40; Admin Dose 50 MLS/HR; Start 01/21/19 at 05:30; Stop 01/21/19 at 13:29 Vancomycin HCl 250 ml @ 125 mls/hr Q24H IVPB ; Start 01/21/19 at 18:00 NILAY TOMLINSON NP Jan 21, 2019 09:25
[2019-01-21] MEDS ORDERED: POTASSIUM CHLORIDE 50 ML IVPB PRN (09:30)
[2019-01-21 12:00] VITALS: BP 130/70; PULSE 70; RESP 18
[2019-01-21] MEDS ORDERED: VANCOMYCIN 1 GM 250 ML IVPB SCH (18:00)
[2019-01-21 19:18] VITALS: BP 141/74; PULSE 76; RESP 18
[2019-01-21] MEDS: LORAZEPAM 2 MG INJ IV PRN (21:21)
[2019-01-22 01:05] VITALS: BP 126/60; PULSE 73; RESP 18
[2019-01-22] MEDS: SOD CHLORIDE 0.9% 1,000 ML IV SCH (01:16)
[2019-01-22] MEDS: CEFEPIME 2GM/50 ML (PMX) 50 ML IVPB SCH ×2 (05:45→14:46)
[2019-01-22] MEDS: PANTOPRAZOLE (EC) 40 MG TAB PO SCH (05:46)
[2019-01-22 08:19] VITALS: BP 130/63; PULSE 75; RESP 18
[2019-01-22] MEDS: PROPRANOLOL 20 MG TAB PO SCH ×2 (09:00→20:00)
[2019-01-22] MEDS: LACTULOSE 30ML CUP PO SCH ×2 (09:00→20:00)
[2019-01-22] MEDS: THIAMINE 100 MG TAB PO SCH (09:00)
[2019-01-22] MEDS: FOLIC ACID 1 MG TAB PO SCH (09:00)
[2019-01-22] MEDS: FUROSEMIDE 20 MG TAB PO SCH (09:00)
[2019-01-22] MEDS: MULTIVITAMINS THERAPEUTIC TAB PO SCH (09:00)
[2019-01-22] MEDS: ENOXAPARIN 40 MG/0.4 ML SYG SC SCH (10:12)
[2019-01-22] MEDS: DEXTROSE 5% 1,000 ML IV SCH ×2 (10:17→23:49)
--- NOTE | 2019-01-22 11:35 | PN ---
Date/Time of Note Date/Time of Note DATE: 01/22/19 TIME: 11:35 Assessment/Plan VTE Prophylaxis Risk score (from [facility])>0 risk: 8 SCD applied (from [facility]): No SCD contraindicated: other Pharmacological prophylaxis: LMWH Lines/Catheters IV Catheter Type (from [facility]): Peripheral IV Urinary Cath still in place: No Assessment/Plan Hospital Course SUBJECTIVE: Remains confused. OBJECTIVE: Physical Exam General: Adequately build 68 year-old male lying in bed in no apparent distress. HEENT: Normocephalic, atraumatic. Eyes: Anicteric sclerae, conjunctivae clear. ENT: Nasal septum midline, oral mucosa is dry moist. Neck supple, no JVD noticed. Respiratory: Bilaterally clear breath sounds. No use of accessory muscles of respiration. No adventitious breath sounds. Cardiovascular: S1, S2 heard. Regular rate and rhythm. Abdomen: Soft, nontender, and nondistended. Bowel sounds positive in all 4 quadrants. Genitourinary: Deferred. Extremities: No cyanosis, no clubbing, no edema. Peripheral pulses palpable. Neurologic: The patient is awake. Open eyes. Does not verbalize needs. Does not follow commands. Skin: Normal skin turgor. No skin rashes. Labs & Vitals per chart ASSESSMENT & PLAN 68-year-old male past medical history of alcoholic liver cirrhosis, liver mass, and drug/alcohol abuse who was brought to the emergency room because of worsening level of consciousness, who was admitted to inpatient setting for further treatment and evaluation. 1. Acute encephalopathy. Most probably toxic metabolic in origin. Brain CT scan negative for any acute findings. Patient currently a DNR. Continue aspiration precautions. Awaiting hospice evaluation. 2. Hepatic mass by history. ?malignant in origin. Being followed by oncology. Family requested no further work-up and make the patient hospice. 3. Hypercalcemia. Status post bisphosphonates and calcitonin. 4. Normocytic, normochromic anemia. Most probably anemia chronic disease. Monitor H&H closely. 5. Hypernatremia. Etiology could be secondary to low free water intake. Patient n.p.o.. Patient's family refusing NG tube/OG tube. Discontinue normal saline. Start the patient on D5W. 6. Fluids, electrolytes, and nutrition. N.p.o. IV fluids. 7. DVT prophylaxis. Bilateral SCDs. 8. Plan. Continue current management. Replete electrolytes. Await hospice evaluation. The patient was seen in collaboration with Dr. Berg. Result Diagram: 01/22/19 0523 01/21/19 0402 Results 24hrs Laboratory Tests Test 01/22/19 05:23 White Blood Count 9.2 # Red Blood Count 3.52 L Hemoglobin 10.2 L Hematocrit 31.6 L Mean Corpuscular Volume 89.8 Mean Corpuscular Hemoglobin 29.0 Mean Corpuscular Hemoglobin Concent 32.3 Red Cell Distribution Width 15.5 H Platelet Count 168 Mean Platelet Volume 8.7 Immature Granulocytes % 0.400 Neutrophils % 78.8 H Lymphocytes % 12.7 L Monocytes % 7.4 Eosinophils % 0.5 Basophils % 0.2 Nucleated Red Blood Cells % 0.0 Immature Granulocytes # 0.040 H Neutrophils # 7.2 Lymphocytes # 1.2 Monocytes # 0.7 Eosinophils # 0.1 Basophils # 0.0 Nucleated Red Blood Cells # 0.0 Exam/Review of Systems Exam Vitals Vital Signs Date Temp Pulse Resp B/P (MAP) Pulse Ox O2 O2 Flow FiO2 Time Delivery Rate 01/22/19 97.9 75 18 130/63 93 08:19 (85) 01/21/19 Nasal 2.0 20:00 Cannula Intake and Output 01/21/19 01/21/19 01/22/19 1515:00 23:00 07:00 IntakeIntake Total 975 ml 750 ml 1325 ml BalanceBalance 975 ml 750 ml 1325 ml Results Results 24hrs Laboratory Tests Test 01/22/19 05:23 White Blood Count 9.2 # Red Blood Count 3.52 L Hemoglobin 10.2 L Hematocrit 31.6 L Mean Corpuscular Volume 89.8 Mean Corpuscular Hemoglobin 29.0 Mean Corpuscular Hemoglobin Concent 32.3 Red Cell Distribution Width 15.5 H Platelet Count 168 Mean Platelet Volume 8.7 Immature Granulocytes % 0.400 Neutrophils % 78.8 H Lymphocytes % 12.7 L Monocytes % 7.4 Eosinophils % 0.5 Basophils % 0.2 Nucleated Red Blood Cells % 0.0 Immature Granulocytes # 0.040 H Neutrophils # 7.2 Lymphocytes # 1.2 Monocytes # 0.7 Eosinophils # 0.1 Basophils # 0.0 Nucleated Red Blood Cells # 0.0 Medications Medication Current Medications Folic Acid (Folic Acid) 1 mg DAILY PO ; Start 01/19/19 at 09:00 Furosemide (Lasix) 20 mg DAILY PO ; Start 01/19/19 at 09:00 Lactulose (Enulose) 10 gm BID PO ; Start 01/18/19 at 21:00 Multivitamins Therapeutic (Theragran) 1 tab DAILY PO ; Start 01/19/19 at 09:00 Pantoprazole (Protonix Tab) 40 mg AC BREAKFAST PO ; Start 01/19/19 at 07:00 Propranolol HCl (Inderal) 20 mg BID PO ; Start 01/18/19 at 21:00 Thiamine HCl (Vitamin B1) 100 mg DAILY PO ; Start 01/19/19 at 09:00 IV Flush (NS 3 ml) 3 ml PER PROTOCOL IV ; Start 01/18/19 at 17:30 Ondansetron HCl (Zofran Inj) 4 mg Q6H PRN IV NAUSEA/VOMITING; Start 01/18/19 at 17:30 Acetaminophen (Tylenol Supp) 650 mg Q6H PRN [place] .PAIN 1-3 OR TEMP Last administ ered on 01/19/19at 13:47; Admin Dose 650 MG; Start 01/18/19 at 17:30 Enoxaparin Sodium (Lovenox) 40 mg DAILY SC Last administered on 01/22/19at 10:12; Admin Dose 40 MG; Start 01/19/19 at 09:00 Lorazepam (Ativan) 1 mg Q6H PRN IV AGITATION/ANXIETY Last administered on 01/21/19at 21:21; Admin Dose 1 MG; Start 01/19/19 at 14:30 Cefepime HCl 50 ml @ 100 mls/hr Q8 IVPB Last administered on 01/22/19at 05:45; Admin Dose 100 MLS/HR; Start 01/19/19 at 16:00 Vancomycin HCl (Vanco Iv Per Pharmacy) 1 ea Per Rx Protocol XX ; Start 01/19/19 at 14:30 Hydralazine HCl (Apresoline) 10 mg Q4H PRN IV ELEVATED BLOOD PRESSURE >160; Start 01/20/19 at 17:00 Vancomycin HCl 250 ml @ 125 mls/hr Q24H IVPB Last administered on 01/21/19at 18:47; Admin Dose 125 MLS/HR; Start 01/21/19 at 18:00 Potassium Chloride 50 ml @ 50 mls/hr K PROTOCOL PRN IVPB PENDING LAB VALUE; Start 01/21/19 at 09:30 Dextrose 1,000 ml @ 75 mls/hr [id number] IV Last administered on 01/22/19at 10:17; Admin Dose 75 MLS/HR; Start 01/22/19 at 10:30 VIVIANA CAPPS NP Jan 22, 2019 11:35
[2019-01-22] MEDS: POTASSIUM CHLORIDE 100 ML IVPB SCH ×4 (12:26→19:08)
[2019-01-22] MEDS ORDERED: MAGNESIUM SULFATE 4 GM/100 ML 100 ML IVPB ONE (12:30)
[2019-01-22 15:03] VITALS: BP 123/68; PULSE 74; RESP 16
[2019-01-22] MEDS: LORAZEPAM 2 MG INJ IV PRN ×2 (15:58→21:56)
[2019-01-22 20:08] VITALS: BP 111/54; PULSE 77; RESP 18
--- NOTE | 2019-01-22 20:55 | PN ---
DATE: 01/22/2019 SUBJECTIVE: The patient has no specific complaints. He does not respond to questions. OBJECTIVE: GENERAL: The patient is a well-developed but a somewhat disheveled and chronically ill-appearing mal e who is awake and restless in bed but does not respond appropriately to questions. VITAL SIGNS: Temperature 98.8 orally, pulse 74 per minute and regular, respirations 16, blood pressu re 123/68, pulse oximetry 94% on 2 L of oxygen by nasal cannula. SKIN: No ecchymosis. No petechiae or rashes. There is poor skin turgor. HEENT: Normocephalic. No evidence of trauma. Pupils are equal, round, reactive to light and accomm odation. Sclerae are nonicteric. Oral mucosa is dry but there are no lesions. NECK: Supple. No jugular venous distention or thyroid enlargement. CHEST: Clear to auscultation and percussion. No rhonchi, wheezes, rales or rubs. No pain on percus glenda of spine, sternum, clavicles or ribs. HEART: Regular sinus rhythm. No S3, S4 or murmurs. BREASTS: No gynecomastia. NODES: No palpable lymphadenopathy. ABDOMEN: Flat and soft. There are no palpable masses, no ascites. Bowel sounds are active. EXTREMITIES: No clubbing, edema or cyanosis. No palpable cords or Homans sign. NEUROLOGIC: The patient does not have any focal neurologic abnormalities. LABORATORY DATA: Sodium 153, potassium 2.5, chloride 120, creatinine 0.87, BUN is 25, calcium 8.3. White count 9400 with an absolute neutrophil count of 7200, hemoglobin 10.2, hematocrit 31.6 and plat elet count 168,000. Immunologic studies show immunoglobulin classes are elevated. Both the serum immunofixation and urin e immunofixation show normal patterns. There is no monoclonal protein seen. DIAGNOSTIC STUDIES: The patient has had a metastatic survey but there was motion and there were no o bvious sclerotic or lytic lesions seen. Also, an ultrasound of the abdomen has been done which shows heterogeneous and coarse echogenicity in the liver but no obvious masses. Again, this is a limited study with pancreas and common bile duct not being demonstrated. ASSESSMENT: 1. Hypercalcemia, resolved. 2. Encephalopathy. 3. Hepatic mass by history but not noted on any available studies. DISCUSSION: At this time, only other options would be further studies including a nuclear medicine b one scan to determine if there are any possible osseous lesions causing the hypercalcemia. Also, a m ore exacting study of the liver such as a CT scan may be necessary to determine if the patient actual ly has hepatic lesion as was stated at the time of admission. Dictated By: JUANY PEARCE MD SR/NTS Conf#: [id number] DID#: [id number] CC: JAIR KUNZ MD;*EndCC*
[2019-01-23 01:04] VITALS: BP 132/64; PULSE 77; RESP 18
[2019-01-23] MEDS: PANTOPRAZOLE (EC) 40 MG TAB PO SCH (06:02)
[2019-01-23 07:35] VITALS: BP 132/60; PULSE 75; RESP 18
[2019-01-23] MEDS: FOLIC ACID 1 MG TAB PO SCH (09:00)
[2019-01-23] MEDS: MULTIVITAMINS THERAPEUTIC TAB PO SCH (09:00)
[2019-01-23] MEDS: THIAMINE 100 MG TAB PO SCH (09:00)
[2019-01-23] MEDS: LACTULOSE 30ML CUP PO SCH ×2 (10:02→21:00)
[2019-01-23] MEDS: FUROSEMIDE 20 MG TAB PO SCH (10:06)
[2019-01-23] MEDS: PROPRANOLOL 20 MG TAB PO SCH ×2 (10:07→21:00)
[2019-01-23] MEDS: ENOXAPARIN 40 MG/0.4 ML SYG SC SCH (10:11)
[2019-01-23] MEDS ORDERED: POTASSIUM PHOSPHATE 30 MM in SOD CHLORIDE 0.9% 250 ML IVPB ONE (11:00)
[2019-01-23] MEDS: POTASSIUM CHLORIDE 100 ML IVPB SCH ×3 (12:18→18:36)
[2019-01-23] MEDS: LORAZEPAM 2 MG INJ IV PRN ×2 (12:20→22:29)
--- NOTE | 2019-01-23 12:24 | PN ---
Date/Time of Note Date/Time of Note DATE: 01/23/19 TIME: 12:23 Assessment/Plan VTE Prophylaxis Risk score (from [facility])>0 risk: 4 SCD applied (from [facility] [place]): Yes Pharmacological prophylaxis: NA/contraindicated Pharm contraindication: liver dx Lines/Catheters [facility]from [facility] Saline Lock Urinary Cath still in place: No Assessment/Plan Hospital Course SUBJECTIVE: Remains confused. OBJECTIVE: Physical Exam General: Adequately build 68 year-old male lying in bed in no apparent distress. HEENT: Normocephalic, atraumatic. Eyes: Anicteric sclerae, conjunctivae clear. ENT: Nasal septum midline, oral mucosa is dry moist. Neck supple, no JVD noticed. Respiratory: Bilaterally clear breath sounds. No use of accessory muscles of respiration. No adventitious breath sounds. Cardiovascular: S1, S2 heard. Regular rate and rhythm. Abdomen: Soft, nontender, and nondistended. Bowel sounds positive in all 4 quadrants. Genitourinary: Deferred. Extremities: No cyanosis, no clubbing, no edema. Peripheral pulses palpable. Neurologic: The patient is awake. Open eyes. Does not verbalize needs. Does not follow commands. Skin: Normal skin turgor. No skin rashes. Labs & Vitals per chart ASSESSMENT & PLAN 68-year-old male past medical history of alcoholic liver cirrhosis, liver mass, and drug/alcohol abuse who was brought to the emergency room because of worsening level of consciousness, who was admitted to inpatient setting for further treatment and evaluation. 1. Acute encephalopathy. Most probably toxic metabolic in origin. Brain CT scan negative for any acute findings. Patient currently a DNR. Continue aspiration precautions. Awaiting hospice evaluation. 2. Hepatic mass by history. ?malignant in origin. Being followed by oncology. Family requested no further work-up and make the patient hospice. 3. Hypercalcemia. Status post bisphosphonates and calcitonin. 4. Normocytic, normochromic anemia. Most probably anemia chronic disease. Monitor H&H closely. 5. Hypernatremia. Etiology could be secondary to low free water intake. Patient n.p.o.. Patient's family refusing NG tube/OG tube. Discontinue normal saline. Start the patient on D5W. 6. Fluids, electrolytes, and nutrition. N.p.o. IV fluids. 7. DVT prophylaxis. Bilateral SCDs. 8. Plan. Had a long conversation with the patient's son including the patient's prognosis. The patient's son did not want to proceed with further invasive procedures or imaging studies. The patient's son wanted the patient to be comfortable. workers compensation claims analyst was present during the conversation. The patient will be transferred to a facility with hospice once a bed is available. All the labs and invasive procedures will be discontinued. The patient was seen in collaboration with Dr. Berg. Result Diagram: 01/23/1918 01/23/1918 Results 24hrs Laboratory Tests Test 01/23/19 08:18 White Blood Count 12.9 #H Red Blood Count 3.55 L Hemoglobin 10.0 L Hematocrit 31.1 L Mean Corpuscular Volume 87.6 Mean Corpuscular Hemoglobin 28.2 L Mean Corpuscular Hemoglobin Concent 32.2 Red Cell Distribution Width 15.8 H Platelet Count 137 L Mean Platelet Volume 8.5 Immature Granulocytes % 0.500 H Neutrophils % 83.2 H Lymphocytes % 9.2 L Monocytes % 6.0 Eosinophils % 0.9 Basophils % 0.2 Nucleated Red Blood Cells % 0.0 Immature Granulocytes # 0.060 H Neutrophils # 10.7 H Lymphocytes # 1.2 Monocytes # 0.8 Eosinophils # 0.1 Basophils # 0.0 Nucleated Red Blood Cells # 0.0 Sodium Level 150 H Potassium Level 2.7 *L Chloride Level 117 H Carbon Dioxide Level 29 Anion Gap 4 L Blood Urea Nitrogen 22 H Creatinine 0.77 Est Glomerular Filtrat Rate mL/min > 60 Glucose Level 139 Calcium Level 7.4 L Phosphorus Level 0.5 L Magnesium Level 2.0 Exam/Review of Systems Exam Vitals Vital Signs Date Temp Pulse Resp B/P (MAP) Pulse Ox O2 O2 Flow FiO2 Time Delivery Rate 01/23/19 98.1 75 18 132/60 96 Room Air 07:35 (84) 01/22/19 2.0 20:16 Intake and Output 01/22/19 01/22/19 01/23/19 1515:00 23:00 07:00 IntakeIntake Total 475 ml 950 ml 1020 ml BalanceBalance 475 ml 950 ml 1020 ml Results Results 24hrs Laboratory Tests Test 01/23/19 08:18 White Blood Count 12.9 #H Red Blood Count 3.55 L Hemoglobin 10.0 L Hematocrit 31.1 L Mean Corpuscular Volume 87.6 Mean Corpuscular Hemoglobin 28.2 L Mean Corpuscular Hemoglobin Concent 32.2 Red Cell Distribution Width 15.8 H Platelet Count 137 L Mean Platelet Volume 8.5 Immature Granulocytes % 0.500 H Neutrophils % 83.2 H Lymphocytes % 9.2 L Monocytes % 6.0 Eosinophils % 0.9 Basophils % 0.2 Nucleated Red Blood Cells % 0.0 Immature Granulocytes # 0.060 H Neutrophils # 10.7 H Lymphocytes # 1.2 Monocytes # 0.8 Eosinophils # 0.1 Basophils # 0.0 Nucleated Red Blood Cells # 0.0 Sodium Level 150 H Potassium Level 2.7 *L Chloride Level 117 H Carbon Dioxide Level 29 Anion Gap 4 L Blood Urea Nitrogen 22 H Creatinine 0.77 Est Glomerular Filtrat Rate mL/min > 60 Glucose Level 139 Calcium Level 7.4 L Phosphorus Level 0.5 L Magnesium Level 2.0 Medications Medication Current Medications Folic Acid (Folic Acid) 1 mg DAILY PO ; Start 01/19/19 at 09:00 Furosemide (Lasix) 20 mg DAILY PO Last administered on 01/23/19at 10:06; Admin Dose 20 MG; Start 01/19/19 at 09:00 Lactulose (Enulose) 10 gm BID PO Last administered on 01/23/19at 10:02; Admin Dose 10 GM; Start 01/18/19 at 21:00 Multivitamins Therapeutic (Theragran) 1 tab DAILY PO ; Start 01/19/19 at 09:00 Pantoprazole (Protonix Tab) 40 mg AC BREAKFAST PO ; Start 01/19/19 at 07:00 Propranolol HCl (Inderal) 20 mg BID PO Last administered on 01/23/19at 10:07; Admin Dose 20 MG; Start 01/18/19 at 21:00 Thiamine HCl (Vitamin B1) 100 mg DAILY PO ; Start 01/19/19 at 09:00 IV Flush (NS 3 ml) 3 ml PER PROTOCOL IV ; Start 01/18/19 at 17:30 Ondansetron HCl (Zofran Inj) 4 mg Q6H PRN IV NAUSEA/VOMITING; Start 01/18/19 at 17:30 Acetaminophen (Tylenol Supp) 650 mg Q6H PRN [place] .PAIN 1-3 OR TEMP Last administered on 01/19/19at 13:47; Admin Dose 650 MG; Start 01/18/19 at 17:30 Enoxaparin Sodium (Lovenox) 40 mg DAILY SC Last administered on 01/23/19at 10:11; Admin Dose 40 MG; Start 01/19/19 at 09:00 Lorazepam (Ativan) 1 mg Q6H PRN IV AGITATION/ANXIETY Last administered on 01/23/19at 12:20; Admin Dose 1 MG; Start 01/19/19 at 14:30 Hydralazine HCl (Apresoline) 10 mg Q4H PRN IV ELEVATED BLOOD PRESSURE >160; Start 01/20/19 at 17:00 Dextrose 1,000 ml @ 75 mls/hr [id number] IV Last administered on 01/22/19at 23:49; Admin Dose 75 MLS/HR; Start 01/22/19 at 10:30 Potassium Chloride 100 ml @ 50 mls/hr Q2H IVPB Last administered on 01/23/19at 12:18; Admin Dose 50 MLS/HR; Start 01/23/19 at 11:00; Stop 01/23/19 at 16:59 Potassium Phosphate 30 mm/ Sodium Chloride 260 ml @ 65 mls/hr ONCE ONCE IVPB Last administered on 01/23/19at 11:30; Admin Dose 65 MLS/HR; Start 01/23/19 at 11:00; Stop 01/23/19 at 14:59 VIVIANA CAPPS NP Jan 23, 2019 12:24
[2019-01-23 14:48] VITALS: BP 138/81; PULSE 78; RESP 18
[2019-01-23] MEDS: DEXTROSE 5% 1,000 ML IV SCH (15:27)
[2019-01-23] MEDS: morphine 2 MG INJ IV PRN (15:58)
--- NOTE | 2019-01-23 16:33 | DS ---
Discharge Summary Admission/Discharge Info Discharge Date/Time Home Meds Discontinued Reported Medications Omeprazole* (Omeprazole*) 20 Mg Capsule.dr, 40 MG PO DAILY, #30 CAP 01/18/19 Folic Acid* (Folic Acid*) 1 Mg Tablet, 1 MG PO DAILY, TAB 01/18/19 Pantoprazole* (Pantoprazole*) 40 Mg Tablet.dr, 40 MG PO AC BREAKFAST, TAB 01/18/19 Multivitamins* (Theragran*) 1 Tab Tab, 1 TAB PO DAILY, TAB 01/18/19 Propranolol Hcl* (Propranolol Hcl*) 20 Mg Tablet, 20 MG PO BID, TAB 01/18/19 Tramadol Hcl* (Ultram*) 50 Mg Tablet, 50 MG PO Q12H PRN for PAIN, TAB 01/18/19 Thiamine* (Vitamin B-1*) 100 Mg Tablet, 100 MG PO DAILY, TAB 01/18/19 Furosemide* (Furosemide*) 20 Mg Tablet, 20 MG PO DAILY, #60 TAB 01/18/19 Lactulose* (Lactulose*) 10 Gm/15 Ml Solution, 15 ML PO BID, ML 01/18/19 VIVIANA CAPPS NP Jan 23, 2019 16:33
[2019-01-23 20:00] VITALS: BP 127/62; PULSE 73; RESP 18
[2019-01-24 02:01] VITALS: BP 152/64; PULSE 76; RESP 16
[2019-01-24] MEDS: DEXTROSE 5% 1,000 ML IV SCH ×3 (02:30→21:51)
[2019-01-24] MEDS: LORAZEPAM 2 MG INJ IV PRN ×2 (04:34→21:20)
[2019-01-24] MEDS: PANTOPRAZOLE (EC) 40 MG TAB PO SCH (06:26)
[2019-01-24] MEDS: morphine 2 MG INJ IV PRN (08:21)
[2019-01-24] MEDS: THIAMINE 100 MG TAB PO SCH (08:22)
[2019-01-24] MEDS: FUROSEMIDE 20 MG TAB PO SCH (08:22)
[2019-01-24] MEDS: FOLIC ACID 1 MG TAB PO SCH (08:22)
[2019-01-24] MEDS: MULTIVITAMINS THERAPEUTIC TAB PO SCH (08:22)
[2019-01-24] MEDS: LACTULOSE 30ML CUP PO SCH ×2 (08:22→20:09)
[2019-01-24] MEDS: PROPRANOLOL 20 MG TAB PO SCH ×2 (08:22→20:09)
[2019-01-24] MEDS: ENOXAPARIN 40 MG/0.4 ML SYG SC SCH (08:27)
[2019-01-24 08:32] VITALS: BP 121/61; PULSE 77; RESP 18
--- NOTE | 2019-01-24 14:04 | PN ---
Assessment/Plan VTE Prophylaxis Risk score (from [facility])>0 risk: 8 SCD applied (from [facility]): Yes Lines/Catheters IV Catheter Type (from [facility]): Saline Lock Urinary Cath still in place: No Assessment/Plan Result Diagram: 01/23/1981701/23/19817 Exam/Review of Systems Medications Medication VIVIANA CAPPS NP Jan 24, 2019 14:04
--- NOTE | 2019-01-24 14:06 | PN ---
Date/Time of Note Date/Time of Note DATE: 01/24/19 TIME: 14:05 Assessment/Plan VTE Prophylaxis Risk score (from [facility] [place])>0 risk: 8 SCD applied (from [facility]): Yes Pharmacological prophylaxis: NA/contraindicated Pharm contraindication: liver dx Lines/Catheters IV Catheter Type (from [facility]): Saline Lock Urinary Cath still in place: No Assessment/Plan Hospital Course SUBJECTIVE: Remains confused. OBJECTIVE: Physical Exam General: Adequately build 68 year-old male lying in bed in no apparent distress. HEENT: Normocephalic, atraumatic. Eyes: Anicteric sclerae, conjunctivae clear. ENT: Nasal septum midline, oral mucosa is dry moist. Neck supple, no JVD noticed. Respiratory: Bilaterally clear breath sounds. No use of accessory muscles of respiration. No adventitious breath sounds. Cardiovascular: S1, S2 heard. Regular rate and rhythm. Abdomen: Soft, nontender, and nondistended. Bowel sounds positive in all 4 quadrants. Genitourinary: Deferred. Extremities: No cyanosis, no clubbing, no edema. Peripheral pulses palpable. Neurologic: The patient is awake. Open eyes. Does not verbalize needs. Does not follow commands. Skin: Normal skin turgor. No skin rashes. Labs & Vitals per chart ASSESSMENT & PLAN 68-year-old male past medical history of alcoholic liver cirrhosis, liver mass, and drug/alcohol abuse who was brought to the emergency room because of worsening level of consciousness, who was admitted to inpatient setting for further treatment and evaluation. 1. Acute encephalopathy. Most probably toxic metabolic in origin. Brain CT scan negative for any acute findings. Patient currently a DNR. Continue aspiration precautions. Awaiting hospice evaluation. 2. Hepatic mass by history. ?malignant in origin. Being followed by oncology. Family requested no further work-up and make the patient hospice. 3. Hypercalcemia. Status post bisphosphonates and calcitonin. 4. Normocytic, normochromic anemia. Most probably anemia chronic disease. Monitor H&H closely. 5. Hypernatremia. Etiology could be secondary to low free water intake. Patient n.p.o.. Patient's family refusing NG tube/OG tube. Discontinue normal saline. Start the patient on D5W. 6. Fluids, electrolytes, and nutrition. N.p.o. IV fluids. 7. DVT prophylaxis. Bilateral SCDs. 8. Plan. Had a long conversation with the patient's son including the patient's prognosis on 01/23/2019. The patient's son did not want to proceed with further invasive procedures or imaging studies. The patient's son wanted the patient to be comfortable. metalworker was present during the conversation. The patient will be transferred to a facility with hospice once a bed is available. The patient was seen in collaboration with Dr. Berg. Result Diagram: 01/23/1981701/23/19817 Exam/Review of Systems Exam Vitals Vital Signs Date Temp Pulse Resp B/P (MAP) Pulse Ox O2 O2 Flow FiO2 Time Delivery Rate 01/24/19 99.6 77 18 121/61 94 Room Air 08:32 (81) 01/22/19 2.0 20:16 Intake and Output 01/23/19 01/23/19 01/24/19 1515:00 23:00 07:00 IntakeIntake Total 1090 ml 700 ml BalanceBalance 1090 ml 700 ml Medications Medication Current Medications Folic Acid (Folic Acid) 1 mg DAILY PO ; Start 01/19/19 at 09:00 Furosemide (Lasix) 20 mg DAILY PO Last administered on 01/23/19at 10:06; Admin Dose 20 MG; Start 01/19/19 at 09:00 Lactulose (Enulose) 10 gm BID PO Last administered on 01/23/19at 10:02; Admin Dose 10 GM; Start 01/18/19 at 21:00 Multivitamins Therapeutic (Theragran) 1 tab DAILY PO ; Start 01/19/19 at 09:00 Pantoprazole (Protonix Tab) 40 mg AC BREAKFAST PO ; Start 01/19/19 at 07:00 Propranolol HCl (Inderal) 20 mg BID PO Last administered on 01/23/19at 10:07; Admin Dose 20 MG; Start 01/18/19 at 21:00 Thiamine HCl (Vitamin B1) 100 mg DAILY PO ; Start 01/19/19 at 09:00 IV Flush (NS 3 ml) 3 ml PER PROTOCOL IV ; Start 01/18/19 at 17:30 Ondansetron HCl (Zofran Inj) 4 mg Q6H PRN IV NAUSEA/VOMITING; Start 01/18/19 at 17:30 Acetaminophen (Tylenol Supp) 650 mg Q6H PRN [place] .PAIN 1-3 OR TEMP Last administered on 01/19/19 13:47; Admin Dose 650 MG; Start 01/18/19 at 17:30 Enoxaparin Sodium (Lovenox) 40 mg DAILY SC Last administered on 01/24/19 08:27; Admin Dose 40 MG; Start 01/19/19 at 09:00 Lorazepam (Ativan) 1 mg Q6H PRN IV AGITATION/ANXIETY Last administered on 01/24/19 04:34; Admin Dose 1 MG; Start 01/19/19 at 14:30 Hydralazine HCl (Apresoline) 10 mg Q4H PRN IV ELEVATED BLOOD PRESSURE >160; Start 01/20/19 at 17:00 Dextrose 1,000 ml @ 75 mls/hr [id number] IV Last administered on 01/24/19 08:22; Admin Dose 75 MLS/HR; Start 01/22/19 at 10:30 Morphine Sulfate (morphine) 1 mg Q4H PRN IV SEVERE PAIN LEVEL 7-10 Last administered on 01/24/19 08:21; Admin Dose 1 MG; Start 01/23/19 at 16:00 VIVIANA CAPPS NP Jan 24, 2019 14:05
[2019-01-24 14:25] VITALS: BP 127/62; PULSE 78; RESP 18
[2019-01-24 20:01] VITALS: BP 116/57; PULSE 82; RESP 18
[2019-01-24] MEDS ORDERED: HALOPERIDOL 5 MG INJ IM ONE (22:30)
[2019-01-25 01:39] VITALS: BP 127/58; PULSE 80; RESP 18
[2019-01-25] MEDS: PANTOPRAZOLE (EC) 40 MG TAB PO SCH (04:51)
[2019-01-25 08:09] VITALS: BP 118/57; PULSE 77; RESP 18
[2019-01-25] MEDS: FUROSEMIDE 20 MG TAB PO SCH (09:00)
[2019-01-25] MEDS: PROPRANOLOL 20 MG TAB PO SCH (09:00)
[2019-01-25] MEDS: THIAMINE 100 MG TAB PO SCH (09:00)
[2019-01-25] MEDS: MULTIVITAMINS THERAPEUTIC TAB PO SCH (09:00)
[2019-01-25] MEDS: LACTULOSE 30ML CUP PO SCH (09:00)
[2019-01-25] MEDS: FOLIC ACID 1 MG TAB PO SCH (09:00)
[2019-01-25] MEDS: ENOXAPARIN 40 MG/0.4 ML SYG SC SCH (09:57)
--- NOTE | 2019-01-25 11:18 | DS ---
Date/Time of Note Date/Time of Note DATE: 01/25/19 TIME: 11:17 Discharge Summary Admission/Discharge Info Admit Date/Time Jan 18, 2019 at 14:37 Discharge Date/Time Discharge Diagnosis 1. Acute encephalopathy. 2. Hepatic mass by history. 3. Hypercalcemia. 4. Normocytic, normochromic anemia. 5. Hypernatremia. 6. Dysphagia. Patient Condition: Guarded Consults 1. Juany Pearce MD, Oncology. 2. Rosa Forde MD, Gastroenterology. 3. Yanelis Moreira MD, Palliative Care. Procedures Brain CT IMPRESSION: 1. No evidence of acute intracranial pathology. 2. Mild generalized volume loss, with mild chronic small vessel ischemic changes. DIAGNOSTIC IMAGING REPORT Patient: NICOLA DANIEL : 1950 Age: 68 Sex: M MR #: [id number] DOS: 01/20/19 0000 Ordering MD: JUANY PEARCE MD Location: [facility] Room/Bed: [facility] PROCEDURE: XR metastatic survey CLINICAL INDICATION: Hypocalcemia TECHNIQUE: AP and lateral views of the skull, AP and lateral views of the spine, AP view of the pelvis, AP and lateral views of the forearm, AP and lateral views of the femurs, AP and lateral views of the tibia and fibula and AP views of the ribs, AP view of the chest, AP view of the pelvis. Multiple images are degraded by motion. COMPARISON: CT brain 01/18/2019 FINDINGS: No definite sclerotic or lytic lesions identified. Small lucencies in the skull may represent vascular channels. No lytic or sclerotic lesions identified in the visualized spine. Imaged sacrum is obscured by overlying bowel gas and stool. Multilevel degenerative changes. Left convex curvature of the thoracic spine. Mild chronic superior endplate irregularities at L3. No lytic or sclerotic lesions identified within the pelvis. Imaged sacrum is obscured by overlying bowel gas and stool. Mild bilateral hip degenerative change. Mild degenerate change of the SI joints. Left middle and lower lung zone hazy opacity. Atherosclerotic calcification of the aorta. No lytic or sclerotic lesions identified within the visualized ribs. No lytic or sclerotic lesions within the visualized upper and lower extremities. Mild bilateral medial tibio-femoral and mild bilateral hip degenerative change. Stent overlying the region of the right upper quadrant and embolization coils overlying the epigastric region. IMPRESSION: 1. Multiple images are degraded by motion. 2. No obvious sclerotic or lytic lesion identified. Nuclear medicine scan may be obtained if clinically indicated. 3. Small rounded lucencies in the calvarium may represent venous channels/arachnoid granulation better seen on prior CT. 4. Hazy left middle and lower lung zone opacification. Recommend correlation with dedicated repeat chest radiographs. Hx of Present Illness This is a 68-year-old male past medical history of alcoholic liver cirrhosis, liver mass, and drug/alcohol abuse who was brought to the emergency room because of worsening level of consciousness, who was admitted to inpatient setting for further treatment and evaluation. Hospital Course The patient's acute encephalopathy was extensively evaluated. The patient did not have any evidence of underlying hyperammonemia. However, the patient had significant electrolyte imbalances including hypercalcemia and hypernatremia. The patient's brain CT scan was negative for any acute intracranial findings. It was concluded that the patient's encephalopathy could have been toxic metabolic in origin. The patient was maintained on aspiration precautions. The patient was evaluated by speech therapy and the patient failed speech therapy evaluation. The patient has a hepatic mass by history. Therefore, oncology and gastroenterology consult was obtained. The patient's abdominal ultrasound that was done at [facility] was showing heterogeneous and coarse echogenicity of the liver. The patient underwent a x-ray metastatic survey because of underlying hypercalcemia that essentially did not show any sclerotic or lytic lesions. The patient had underlying significant hypercalcemia that was treated with bisphosphonates and calcitonin. Etiology of the patient's underlying hypercalcemia remains unclear. The patient's alpha-fetoprotein level was within normal limits.. Further management including dedicated imaging of the liver and biopsy was discussed with the patient's family. However, the patient's family wanted the patient to be comfortable and the patient's son also discussed about the patient's wishes that the patient does not want to undergo aggressive therapy including any chemotherapy once the patient was more awake and alert. Therefore, hospice agency was consulted and the patient will be transferred to a facility under hospice. The patient was noticed to have hypernatremia, most probably secondary to underlying low free water intake. The patient's family refused any NG tube or OG tube insertion. Therefore, the patient was maintained on D5W. The patient also had electrolyte imbalances including low potassium and low magnesium that was repleted on a daily basis until the patient was made hospice. At this time I would like to thank all the consultants for seeing the patient and providing clinical recommendations. The patient was seen in collaboration with . Home Meds Discontinued Reported Medications Omeprazole* (Omeprazole*) 20 Mg Capsule.dr, 40 MG PO DAILY, #30 CAP 01/18/19 Folic Acid* (Folic Acid*) 1 Mg Tablet, 1 MG PO DAILY, TAB 01/18/19 Pantoprazole* (Pantoprazole*) 40 Mg Tablet.dr, 40 MG PO AC BREAKFAST, TAB 01/18/19 Multivitamins* (Theragran*) 1 Tab Tab, 1 TAB PO DAILY, TAB 01/18/19 Propranolol Hcl* (Propranolol Hcl*) 20 Mg Tablet, 20 MG PO BID, TAB 01/18/19 Tramadol Hcl* (Ultram*) 50 Mg Tablet, 50 MG PO Q12H PRN for PAIN, TAB 01/18/19 Thiamine* (Vitamin B-1*) 100 Mg Tablet, 100 MG PO DAILY, TAB 01/18/19 Furosemide* (Furosemide*) 20 Mg Tablet, 20 MG PO DAILY, #60 TAB 01/18/19 Lactulose* (Lactulose*) 10 Gm/15 Ml Solution, 15 ML PO BID, ML 01/18/19 Follow-up Plan The patient being transferred to a nursing facility under hospice. Primary Care Provider [facility] Time spent on discharge: > 30 minutes VIVIANA CAPPS NP Jan 25, 2019 11:18
== END 2019-01-25 14:00 | disposition hospice, inpatient (51) | DRG 92 ==
LOC: E/R 11:28 → 2NE 14:37
PROVIDERS: ADMIT Internal Medicine; ATTEND Internal Medicine
PROC: 4A033R1 Measurement of Arterial Saturation, Peripheral, Percutaneous Approach (ICD-10-PCS; principal; 2019-01-18)
DX: G92 Toxic encephalopathy (principal); E87.0 Hyperosmolality and hypernatremia; R16.0 Hepatomegaly, not elsewhere classified; E83.52 Hypercalcemia; Z59.0 Homelessness; K70.30 Alcoholic cirrhosis of liver without ascites; I11.0 Hypertensive heart disease with heart failure; I50.9 Heart failure, unspecified; Z66 Do not resuscitate; E86.0 Dehydration; D64.9 Anemia, unspecified; R13.10 Dysphagia, unspecified
CPT/HCPCS: 36415; 36600; 70450; 71045; 76700; 77075; 80048; 80053; 80061; 80202; 80307; 81003; 82105; 82140; 82310; 82550; 82553; 82565; 82784; 82803; 82962; 83036; 83605; 83735; 83970; 84100; 84153; 84154; 84155; 84165; 84436; 84443; 84479; 84484; 84520; 85025; 85610; 85730; 86320; 86325; 86704; 86709; 86803; 87086; 87340; 92526; 92610; 93005; 96361; 96365; 96375; J2430; A4310; J0692; J1630; J1650; J2060; J2270; J3370; J3480; J3489; J7030; J7040; J7050; J7070